=== PATIENT | male | born 1950 | race Caucasian/White ===

== ENCOUNTER 2019-05-01 07:38 | Day surgery (SDC) | payer MEDICARE ==
[2019-04-24 14:02] VITALS: BMI 27.8
[2019-05-01] MEDS ORDERED: Bupivacaine PF 0.5% 30 ML VIAL ONE (08:42)
[2019-05-01] MEDS ORDERED: Lidocaine 1% w/Epinephrine 1:100K 20 ML VIAL ONE (08:42)
[2019-05-01] MEDS ORDERED: Fentanyl 100 MCG/2 ML VIAL ONE (08:45)
[2019-05-01] MEDS ORDERED: Lidocaine 1% PF 5 ML VIAL ONE (11:13)
[2019-05-01] MEDS ORDERED: PROPOFOL 200 MG/20 ML VIAL ONE (11:13)
[2019-05-01] MEDS ORDERED: ePHEDrine/0.9% NaCl/PF SYRINGE 50 mg/10 ml ONE (11:13)
[2019-05-01] MEDS ORDERED: Ondansetron PF 4 MG/2 ML Vial ONE (11:13)
--- NOTE | 2019-05-02 14:01 | OP ---
DATE OF PROCEDURE: 05/01/2019 PREOPERATIVE DIAGNOSES: 1. Skin malignancy, left shoulder. 2. Lesions to scalp. POSTOPERATIVE DIAGNOSES: 1. Skin malignancy, left shoulder. 2. Lesions to scalp. PROCEDURES PERFORMED: 1. Wide local excision of skin cancer to left shoulder and thorax, 3.5 cm in diameter. 2. Complex layered closure of wound to left shoulder, 10.5 cm in length. 3. Shave biopsy of lesions to scalp. ANESTHESIA: General. ESTIMATED BLOOD LOSS: Minimal. COMPLICATIONS: None. SPECIMEN: Left shoulder lesion was marked with 2 short superior 1 long lateral and sent to Path, which revealed it to be a likely squamous malignancy with negative margins on frozen. Pathology of scalp lesions pending at this time. DESCRIPTION OF PROCEDURE: The patient was taken to the operating room and laid supine on the operating room table. After general anesthetic was obtained, the scalp and left chest was prepped and draped in a sterile fashion. An elliptical incision was used to remove the left shoulder exophytic ulcerated lesion. This was 3.5 cm in diameter and 10.5 cm in length. Dissection was taken down to the fascia. The wound was removed, marked, and sent to Path, which revealed frozen to be negative of the margins. Extensive undermining was performed circumferentially. The wound was closed in multiple layers using Vicryl, Monocryl, and Dermabond. Next, the scalp areas were shaved off using sharp dissection and sent to Path for biopsy. The wound bed was cauterized. There was no ongoing bleeding. The patient was sent to Recovery in stable condition. All instrument counts, needle counts, and lap counts were correct. Job ID: [id number]
== END 2019-05-01 12:33 | disposition home or self-care (01) ==
LOC: SDC 07:38
PROVIDERS: ATTEND Surgery
PROC: 0HB0XZX Excision of Scalp Skin, External Approach, Diagnostic (ICD-10-PCS; principal; 2019-05-01)
PROC: 0HBCXZZ Excision of Left Upper Arm Skin, External Approach (ICD-10-PCS; 2019-05-01)
DX: C44.629 Squamous cell carcinoma of skin of left upper limb, including shoulder (principal); L98.8 Other specified disorders of the skin and subcutaneous tissue; E78.5 Hyperlipidemia, unspecified; N40.0 Benign prostatic hyperplasia without lower urinary tract symptoms; E78.00 Pure hypercholesterolemia, unspecified; Z86.73 Personal history of transient ischemic attack (TIA), and cerebral infarction without residual deficits; Z87.891 Personal history of nicotine dependence; Z79.82 Long term (current) use of aspirin; Z79.899 Other long term (current) drug therapy
CPT/HCPCS: 88305; 88331; 88332; 88341; 88342; J0131; J0690; J2001; J2405; J2704; J3010; S0020

== ENCOUNTER 2021-07-23 12:15 | Inpatient (IN) | payer MEDICARE ==
[2021-08-04 10:04] VITALS: BMI 26.4
[2021-08-06] MEDS ORDERED: Tranexamic Acid 1,000 MG/10 ML VIAL ONE (06:21)
[2021-08-06] MEDS ORDERED: Sodium Chloride 0.9% 100 ML ONE (06:21)
[2021-08-06] MEDS ORDERED: Vancomycin 1.5 GRAM/300 ML BAG 1.5 GM in Premix Bag 1 BAG IVPB SCH (06:30)
[2021-08-06] MEDS ORDERED: Propofol 500 MG/50 ML VIAL ONE ×2 (06:47→08:47)
[2021-08-06] MEDS ORDERED: Fentanyl 100 MCG/2 ML VIAL ONE ×3 (06:47→12:08)
[2021-08-06] MEDS ORDERED: Midazolam HCl 2 mg/2 ml Vial ONE (06:47)
[2021-08-06] MEDS ORDERED: Acetaminophen 325 MG TAB PO PRN (06:51)
[2021-08-06] MEDS ORDERED: Ondansetron PF 4 MG/2 ML Vial IVP PRN (06:51)
[2021-08-06] MEDS ORDERED: Zolpidem Tartrate 5 MG TAB PO PRN (06:51)
[2021-08-06] MEDS ORDERED: diphenhydrAMINE 25 MG CAP PO PRN (06:51)
[2021-08-06] MEDS ORDERED: Fentanyl 100 MCG/2 ML VIAL SLOW IVP PRN ×2 (06:51)
[2021-08-06] MEDS ORDERED: Promethazine HCl 25 MG/ML VIAL IM PRN ×2 (06:51→10:15)
[2021-08-06] MEDS ORDERED: Bupivacaine PF 0.5% 30 ML VIAL ONE (06:57)
[2021-08-06] MEDS ORDERED: ceFAZolin 2 GM/DEX 5% 100 ML BAG ONE (07:15)
[2021-08-06] MEDS ORDERED: Phenylephrine 10 MG/ML VIAL ONE (07:43)
[2021-08-06] MEDS ORDERED: Glycopyrrolate 0.2 MG/ML 5 ML SYRINGE ONE (07:57)
[2021-08-06] MEDS ORDERED: Bupivacaine HCl 0.5%/Epinephrine 1:200,000/PF 30 ml Vial ONE (07:57)
[2021-08-06] MEDS ORDERED: Non-Formulary Item 1 EACH (Cyanocobalamin (Vitamin B-12) [Vitamin B-12] 1,000 MCG Capsule PO SCH (09:00)
[2021-08-06] MEDS ORDERED: Aspirin 81 mg Enteric Coated Tablet PO SCH ×2 (09:00)
[2021-08-06] MEDS ORDERED: Non-Formulary Item 1 EACH (Atorvastatin Calcium [Atorvastatin Calcium] 80 MG Tablet) PO SCH (09:00)
[2021-08-06] MEDS ORDERED: Non-Formulary Item 1 EACH (Multivit-Mins/Iron/Folic/Lycop [Centrum Men's Tablet] 1 EACH T PO SCH (09:00)
[2021-08-06] MEDS ORDERED: Ondansetron HCl/PF 4 MG/2 ML Vial IVP PRN (10:15)
[2021-08-06] MEDS ORDERED: Promethazine HCl 25 MG/ML VIAL IVPB PRN (10:15)
[2021-08-06] MEDS ORDERED: ceFAZolin 2 GM/Dextrose 50 ML 2 GM in Premix Bag 1 BAG IVPB SCH (14:00)
[2021-08-06] MEDS: Sodium Chloride 0.9% 1,000 ML IV SCH ×3 (19:08→23:46)
[2021-08-06] MEDS: Multivitamin W/ Minerals 1 TAB PO SCH (19:13)
[2021-08-06] MEDS: Ferrous Gluconate 324 MG TAB PO SCH ×2 (19:13→20:44)
[2021-08-06] MEDS: Cyanocobalamin (Vitamin B-12) 1,000 MCG TAB PO SCH (19:13)
[2021-08-06] MEDS: Aspirin 81 mg Enteric Coated Tablet PO SCH (19:13)
[2021-08-06] MEDS: Senokot S 8.6-50 MG TAB PO SCH ×2 (19:14→20:45)
[2021-08-06] MEDS: Ketorolac Tromethamine 30 MG/ML VIAL IVP SCH ×2 (19:20→20:43)
[2021-08-06] MEDS: ceFAZolin Sodium/D5W 2 GM in Premix Bag 1 BAG IVPB SCH ×2 (19:22→23:46)
[2021-08-06] MEDS: Atorvastatin Calcium 40 MG TAB PO SCH (20:45)
[2021-08-06] MEDS: HYDROcodone/Acetaminophen 10/325 mg Tablet PO PRN (22:25)
[2021-08-07] MEDS: Ketorolac Tromethamine 30 MG/ML VIAL IVP SCH ×3 (05:32→22:21)
[2021-08-07 06:30] LABS: Hemoglobin 12.2 g/dL (14.0-18.0); Mean Corpuscular HGB CONC 34.1 g/dL (32.0-36.0); Mean Corpuscular Hemoglobin 34.7 pg (27.0-31.0); Platelet Count 185 thou/uL (130-400); RBC Distribution Width 12.3 % (11.5-14.5); Red Blood Cell (RBC) Count 3.52 mill/uL (4.70-6.10); White Blood Cell (WBC) Count 4.8 thou/uL (4.8-10.8)
[2021-08-07] MEDS: Ferrous Gluconate 324 MG TAB PO SCH ×2 (09:20→20:20)
[2021-08-07] MEDS: Senokot S 8.6-50 MG TAB PO SCH ×2 (09:20→20:20)
[2021-08-07] MEDS: Cyanocobalamin (Vitamin B-12) 1,000 MCG TAB PO SCH (09:21)
[2021-08-07] MEDS: Multivitamin W/ Minerals 1 TAB PO SCH (09:21)
[2021-08-07] MEDS: Aspirin 81 mg Enteric Coated Tablet PO SCH (09:21)
[2021-08-07] MEDS: HYDROcodone/Acetaminophen 10/325 mg Tablet PO PRN (10:57)
[2021-08-07] MEDS: Sodium Chloride 0.9% 1,000 ML IV SCH ×2 (15:54→22:46)
[2021-08-07] MEDS: Atorvastatin Calcium 40 MG TAB PO SCH (20:20)
[2021-08-08] MEDS: Ketorolac Tromethamine 30 MG/ML VIAL IVP SCH ×2 (05:53→14:30)
[2021-08-08 06:13] LABS: Hemoglobin 11.5 g/dL (14.0-18.0); Mean Corpuscular HGB CONC 32.9 g/dL (32.0-36.0); Mean Corpuscular Hemoglobin 33.4 pg (27.0-31.0); Platelet Count 189 thou/uL (130-400); RBC Distribution Width 12.3 % (11.5-14.5); Red Blood Cell (RBC) Count 3.45 mill/uL (4.70-6.10); White Blood Cell (WBC) Count 6.5 thou/uL (4.8-10.8)
[2021-08-08] MEDS: Cyanocobalamin (Vitamin B-12) 1,000 MCG TAB PO SCH (08:45)
[2021-08-08] MEDS: Multivitamin W/ Minerals 1 TAB PO SCH (08:45)
[2021-08-08] MEDS: Senokot S 8.6-50 MG TAB PO SCH ×2 (08:45→19:32)
[2021-08-08] MEDS: Aspirin 81 mg Enteric Coated Tablet PO SCH (08:45)
[2021-08-08] MEDS: Ferrous Gluconate 324 MG TAB PO SCH ×2 (08:45→19:33)
[2021-08-08] MEDS: Sodium Chloride 0.9% 1,000 ML IV SCH ×2 (09:01→17:31)
[2021-08-08] MEDS: Atorvastatin Calcium 40 MG TAB PO SCH (19:33)
[2021-08-09] MEDS: HYDROcodone/Acetaminophen 10/325 mg Tablet PO PRN ×2 (03:51→20:55)
[2021-08-09] MEDS: Sodium Chloride 0.9% 1,000 ML IV SCH ×2 (04:17→16:31)
[2021-08-09 06:28] LABS: Hemoglobin 10.4 g/dL (14.0-18.0); Mean Corpuscular HGB CONC 33.1 g/dL (32.0-36.0); Mean Corpuscular Hemoglobin 33.7 pg (27.0-31.0); Mean Platelet Volume 7.1 fL (7.4-10.4); Platelet Count 192 thou/uL (130-400); RBC Distribution Width 12.2 % (11.5-14.5); Red Blood Cell (RBC) Count 3.09 mill/uL (4.70-6.10); White Blood Cell (WBC) Count 5.9 thou/uL (4.8-10.8)
[2021-08-09] MEDS: Senokot S 8.6-50 MG TAB PO SCH ×2 (09:10→20:53)
[2021-08-09] MEDS: Aspirin 81 mg Enteric Coated Tablet PO SCH (09:15)
[2021-08-09] MEDS: Ferrous Gluconate 324 MG TAB PO SCH ×2 (09:16→20:54)
[2021-08-09] MEDS: Multivitamin W/ Minerals 1 TAB PO SCH (09:16)
[2021-08-09] MEDS: Cyanocobalamin (Vitamin B-12) 1,000 MCG TAB PO SCH (09:17)
[2021-08-09] MEDS: Atorvastatin Calcium 40 MG TAB PO SCH (20:54)
[2021-08-10] MEDS: Sodium Chloride 0.9% 1,000 ML IV SCH ×3 (01:00→21:00)
[2021-08-10 05:44] LABS: Hemoglobin 10.5 g/dL (14.0-18.0); Mean Corpuscular HGB CONC 33.9 g/dL (32.0-36.0); Mean Corpuscular Hemoglobin 34.3 pg (27.0-31.0); Mean Platelet Volume 6.8 fL (7.4-10.4); Platelet Count 224 thou/uL (130-400); Red Blood Cell (RBC) Count 3.05 mill/uL (4.70-6.10); White Blood Cell (WBC) Count 5.1 thou/uL (4.8-10.8)
[2021-08-10] MEDS: HYDROcodone/Acetaminophen 10/325 mg Tablet PO PRN ×3 (07:57→20:36)
[2021-08-10] MEDS: Aspirin 81 mg Enteric Coated Tablet PO SCH (07:58)
[2021-08-10] MEDS: Cyanocobalamin (Vitamin B-12) 1,000 MCG TAB PO SCH (07:59)
[2021-08-10] MEDS: Ferrous Gluconate 324 MG TAB PO SCH ×2 (07:59→20:36)
[2021-08-10] MEDS: Multivitamin W/ Minerals 1 TAB PO SCH (08:00)
[2021-08-10] MEDS: Senokot S 8.6-50 MG TAB PO SCH ×2 (08:00→20:36)
[2021-08-10] MEDS: Atorvastatin Calcium 40 MG TAB PO SCH (20:36)
[2021-08-11] MEDS: Sodium Chloride 0.9% 1,000 ML IV SCH ×2 (07:00→18:37)
[2021-08-11] MEDS: Multivitamin W/ Minerals 1 TAB PO SCH (08:26)
[2021-08-11] MEDS: Senokot S 8.6-50 MG TAB PO SCH ×2 (08:26→21:16)
[2021-08-11] MEDS: Ferrous Gluconate 324 MG TAB PO SCH ×2 (08:26→21:16)
[2021-08-11] MEDS: Aspirin 81 mg Enteric Coated Tablet PO SCH (08:26)
[2021-08-11] MEDS: Cyanocobalamin (Vitamin B-12) 1,000 MCG TAB PO SCH (08:26)
[2021-08-11] MEDS: HYDROcodone/Acetaminophen 10/325 mg Tablet PO PRN ×2 (08:28→21:18)
[2021-08-11] MEDS: Atorvastatin Calcium 40 MG TAB PO SCH (21:16)
[2021-08-12] MEDS: Sodium Chloride 0.9% 1,000 ML IV SCH ×2 (03:00→15:02)
[2021-08-12] MEDS: Senokot S 8.6-50 MG TAB PO SCH ×2 (10:00→21:26)
[2021-08-12] MEDS: Aspirin 81 mg Enteric Coated Tablet PO SCH (10:00)
[2021-08-12] MEDS: Cyanocobalamin (Vitamin B-12) 1,000 MCG TAB PO SCH (10:00)
[2021-08-12] MEDS: HYDROcodone/Acetaminophen 10/325 mg Tablet PO PRN ×2 (10:01→21:23)
[2021-08-12] MEDS: Multivitamin W/ Minerals 1 TAB PO SCH (10:01)
[2021-08-12] MEDS: Ferrous Gluconate 324 MG TAB PO SCH ×2 (10:01→21:23)
[2021-08-12] MEDS: Atorvastatin Calcium 40 MG TAB PO SCH (21:23)
[2021-08-13] MEDS: Sodium Chloride 0.9% 1,000 ML IV SCH ×2 (00:33→11:06)
[2021-08-13] MEDS: HYDROcodone/Acetaminophen 10/325 mg Tablet PO PRN ×2 (06:23→13:34)
[2021-08-13] MEDS: Multivitamin W/ Minerals 1 TAB PO SCH (08:07)
[2021-08-13] MEDS: Ferrous Gluconate 324 MG TAB PO SCH (08:07)
[2021-08-13] MEDS: Senokot S 8.6-50 MG TAB PO SCH (08:07)
[2021-08-13] MEDS: Aspirin 81 mg Enteric Coated Tablet PO SCH (08:07)
[2021-08-13] MEDS: Cyanocobalamin (Vitamin B-12) 1,000 MCG TAB PO SCH (08:11)
[2021-08-13 11:48] VITALS: BP 153/71; TEMP 98.3
== END 2021-08-13 14:36 | disposition home or self-care (01) | DRG 467 ==
LOC: EDSTATUS 07-28 12:15 → SURG A 08-06 05:39 → SURG B 08-06 15:00
PROVIDERS: ADMIT Orthopaedic Surgery; ATTEND Orthopaedic Surgery
PROC: 0SRB03A Replacement of Left Hip Joint with Ceramic Synthetic Substitute, Uncemented, Open Approach (ICD-10-PCS; principal; 2021-08-06)
PROC: 0SPB0JZ Removal of Synthetic Substitute from Left Hip Joint, Open Approach (ICD-10-PCS; 2021-08-06)
DX: T84.011A Broken internal left hip prosthesis, initial encounter (principal); D62 Acute posthemorrhagic anemia; Y83.8 Other surgical procedures as the cause of abnormal reaction of the patient, or of later complication, without mention of misadventure at the time of the procedure; E78.5 Hyperlipidemia, unspecified; E78.00 Pure hypercholesterolemia, unspecified; Z20.822 Contact with and (suspected) exposure to COVID-19; Z96.649 Presence of unspecified artificial hip joint; Z86.73 Personal history of transient ischemic attack (TIA), and cerebral infarction without residual deficits; Z85.828 Personal history of other malignant neoplasm of skin; Z90.49 Acquired absence of other specified parts of digestive tract; Z01.812 Encounter for preprocedural laboratory examination
CPT/HCPCS: 36415; 80048; 85025; 85027; 85610; 87081; 88305; 93005; 93010; C1713; C1776; J1885; J2250; J2370; J2704; J3010; J3490; J7050; S0020; U0003; U0005

== ENCOUNTER 2022-12-06 21:05 | Emergency (ER) | payer OTHER | END 2022-12-06 22:46 | disposition home or self-care (01) | LOC: ERS 21:05 | DX: R53.1 Weakness (principal); E78.00 Pure hypercholesterolemia, unspecified; Z79.899 Other long term (current) drug therapy | CPT/HCPCS: 93005 ==

== ENCOUNTER 2022-12-07 05:29 | Inpatient (IN) | payer OTHER ==
[2022-12-07] MEDS ORDERED: Lidocaine 1% (PF) 30 ML VIAL ONE (06:31)
[2022-12-07] MEDS ORDERED: Midazolam HCl 2 mg/2 ml Vial ONE (07:12)
[2022-12-07] MEDS ORDERED: fentaNYL 50 mcg/mL 1 mL Vial ONE (07:13)
[2022-12-07 07:35] LABS: Cardiac Risk 3.9 (Less than 4.5)
[2022-12-07] MEDS ORDERED: Heparin 10,000 UNITS/ 10 ML VIAL ONE (07:40)
[2022-12-07] MEDS ORDERED: Protamine Sulfate 50 MG/5 ML VIAL ONE (07:54)
[2022-12-07] MEDS ORDERED: Diazepam 5 MG TAB PO PRN (09:05)
[2022-12-07] MEDS ORDERED: Iopamidol 370 76% 100 ML VIAL ONE (09:09)
[2022-12-07] MEDS ORDERED: Nitroglycerin 0.4 MG TAB (25 Tab Bottle) SL PRN (09:45)
[2022-12-07] MEDS ORDERED: Acetaminophen/Codeine 30-300mg Tablet PO PRN ×2 (09:45)
[2022-12-07] MEDS ORDERED: Sodium Chloride 0.9% 1,000 ML IV SCH (09:45)
[2022-12-07] MEDS: Carvedilol 3.125 MG TAB PO SCH (18:10)
[2022-12-07] MEDS ORDERED: Atorvastatin Calcium 40 MG TAB PO SCH (21:00)
[2022-12-08] MEDS ORDERED: CEFAZOLIN 2 GM in Sodium Chloride 0.9% 100 ML IVPB SCH (06:00)
[2022-12-08] MEDS: Carvedilol 3.125 MG TAB PO SCH (06:20)
[2022-12-08] MEDS ORDERED: Heparin 10,000 UNITS/1 ML VIAL 30,000 UNITS in Sodium Chloride 0.9% 1,000 ML FS SCH (07:30)
[2022-12-08] MEDS ORDERED: Lidocaine 1% MPF 2 ML VIAL ONE (09:51)
[2022-12-08] MEDS ORDERED: Bupivacaine HCl 0.5%/Epinephrine 1:200,000/PF 30 ml Vial ONE (10:50)
[2022-12-08] MEDS ORDERED: Midazolam HCl 2 mg/2 ml Vial ONE (10:50)
[2022-12-08] MEDS ORDERED: Dexamethasone 4 mg/ml Vial ONE (10:50)
[2022-12-08] MEDS ORDERED: Heparin 5,000 UNITS/ML VIAL ONE (10:54)
[2022-12-08] MEDS ORDERED: Rocuronium Bromide 10 MG/ML (10ML VIAL) ONE (10:54)
[2022-12-08] MEDS ORDERED: PHENYLEPHRINE-NS 100 MCG/ML 10 ML SYRINGE ONE (10:54)
[2022-12-08] MEDS ORDERED: Calcium Chloride 1 GM/10 ML Abboject SYRINGE ONE (10:54)
[2022-12-08] MEDS ORDERED: PROPOFOL 200 MG/20 ML VIAL ONE (10:54)
[2022-12-08] MEDS ORDERED: NEOSTIGMINE 3 MG/3 ML SYR 3 MG/3 ML SYRINGE ONE (10:54)
[2022-12-08] MEDS ORDERED: Heparin 30,000 units/30 ml VIAL ONE (10:54)
[2022-12-08] MEDS ORDERED: Papaverine 60 MG/2 ML VIAL ONE (10:54)
[2022-12-08] MEDS ORDERED: Sodium Bicarb 50 MEQ/50 ML VIAL ONE (10:54)
[2022-12-08] MEDS ORDERED: Aminocaproic Acid 5 GM/20 ML VIAL ONE (10:54)
[2022-12-08] MEDS ORDERED: Vancomycin 1 GM VIAL ONE (10:54)
[2022-12-08] MEDS ORDERED: Mannitol 12.5 GM/50 ML ONE (10:54)
[2022-12-08] MEDS ORDERED: Lidocaine 2% PF 100 mg/5 ml Syringe ONE (10:54)
[2022-12-08] MEDS ORDERED: Ondansetron PF 4 MG/2 ML Vial ONE (10:54)
[2022-12-08] MEDS ORDERED: Protamine Sulfate 250 MG/25 ML VIAL ONE (10:54)
[2022-12-08] MEDS ORDERED: Glycopyrrolate 0.2 MG/ML 5 ML SYRINGE ONE (10:54)
[2022-12-08] MEDS ORDERED: Magnesium 5 GM/10 ML VIAL ONE (10:54)
[2022-12-08] MEDS ORDERED: Potassium Chloride 60 MEQ/30 ML VIAL ONE (10:54)
[2022-12-08] MEDS ORDERED: Thrombin 5000 UNITS/5 ML VIAL ONE (10:54)
[2022-12-08] MEDS ORDERED: Fentanyl 250 MCG/5 ML VIAL ONE (11:08)
[2022-12-08] MEDS ORDERED: Milrinone 10 MG/10 ML VIAL ONE (11:08)
[2022-12-08] MEDS ORDERED: Phenylephrine 10 MG/ML VIAL ONE (11:09)
[2022-12-08] MEDS ORDERED: Norepinephrine 4 MG/4 ML VIAL ONE (11:12)
[2022-12-08] MEDS ORDERED: Sodium Chloride 0.9% 100 ML ONE (11:17)
[2022-12-08] MEDS ORDERED: CEFAZOLIN 2 GM VIAL ONE (11:17)
[2022-12-08] MEDS ORDERED: Albumin 5% 500 ML ONE (13:02)
[2022-12-08] MEDS ORDERED: Albumin 25% 100 ML ONE (14:58)
[2022-12-08] MEDS ORDERED: Mag-Al 1200 mg/1200 mg/30 ML UDCUP PO PRN (15:01)
[2022-12-08] MEDS ORDERED: Bisacodyl 5 MG TAB PO PRN (15:01)
[2022-12-08] MEDS ORDERED: Morphine 2 MG/ML VIAL SLOW IVP PRN (15:01)
[2022-12-08] MEDS ORDERED: Hetastarch 6% 500 ML 500 ML IVPB PRN (15:01)
[2022-12-08] MEDS ORDERED: Potassium Chloride 20 MEQ/100 ML PREMIX BAG IVPB PRN (15:01)
[2022-12-08] MEDS ORDERED: Promethazine HCl 25 MG/ML VIAL IM PRN (15:01)
[2022-12-08] MEDS ORDERED: Acetaminophen 325 MG TAB PO PRN (15:01)
[2022-12-08] MEDS ORDERED: Ipratropium/Albuterol 3 ML NEB NEB PRN (15:01)
[2022-12-08] MEDS ORDERED: Bisacodyl 10 MG SUPP PR PRN (15:01)
[2022-12-08] MEDS ORDERED: NOREPINEPHRINE 8 MG/250 ML-D5W 250 ML IVPB PRN (15:01)
[2022-12-08] MEDS ORDERED: fentaNYL 50 mcg/mL 1 mL Vial SLOW IVP PRN (15:01)
[2022-12-08] MEDS ORDERED: Ondansetron PF 4 MG/2 ML Vial IVP PRN (15:01)
[2022-12-08] MEDS ORDERED: Guaifenesin DM 100-10/5 ML UDCUP PO PRN (15:01)
[2022-12-08] MEDS ORDERED: Magnesium 2 GM/50 ML(in water) 2 GM in Premix Bag 1 BAG IVPB SCH (15:01)
[2022-12-08] MEDS ORDERED: Nitroglycerin 50 MG/250 ML BOT 250 ML IVPB PRN (15:01)
[2022-12-08] MEDS ORDERED: HYDROcodone/Acetaminophen 5/325 mg Tablet PO PRN ×2 (15:01)
[2022-12-08] MEDS ORDERED: hydrALAZINE 20 MG/ML VIAL SLOW IVP PRN (15:01)
[2022-12-08] MEDS ORDERED: Glucagon 1 MG/ML KIT SC PRN (15:15)
[2022-12-08] MEDS ORDERED: Dextrose 5% in Water 1,000 ML IV PRN (15:15)
[2022-12-08] MEDS ORDERED: Dextrose 50% Abboject 50 ML SYRINGE SLOW IVP PRN (15:15)
[2022-12-08 15:21] LABS: #Eosinphils 0.3 thou/uL (0.0-0.7); #Monocytes 0.6 thou/uL (0.11-0.59); #Neutrophils 10.5 thou/uL (1.40-6.50); %Basophils 0.2 % (0.0-1.0); %Eosinophils 2.2 % (0.0-10.0); %Lymphocytes 7.6 % (21.0-51.0); %Monocytes 4.5 % (0.0-10.0); Hematocrit 33.7 % (42.0-52.0); Mean Corpuscular HGB CONC 32.6 g/dL (32.0-36.0); Mean Corpuscular Hemoglobin 32.6 pg (27.0-31.0); Mean Platelet Volume 9.9 fL (7.4-10.4); Platelet Count 170 10x3/uL (130-400); RBC Distribution Width 13.5 % (11.5-14.5); Red Blood Cell (RBC) Count 3.37 mill/uL (4.70-6.10); White Blood Cell (WBC) Count 12.3 10x3/uL (4.8-10.8)
[2022-12-08] MEDS: D5 1/2 NS w/20 mEq KCL 1,000 ML IV SCH (15:32)
[2022-12-08 15:37] LABS: PTT 33.3 sec (22.9-36.1)
[2022-12-08 15:38] LABS: INR-International Normal Ratio 1.3
[2022-12-08 15:45] LABS: Anion Gap 14 mmol/L (10-20); BUN (Urea Nitrogen) 11 mg/dL (8.4-25.7); Calc. Creatinine Clearance 139 mL/min (70-130); Calcium 7.9 mg/dL (7.8-10.44); Carbon Dioxide 19 mmol/L (23-31); Chloride 108 mmol/L (98-107); Estimated GFR 106; Glucose 114 mg/dL (83-110); Potassium 4.1 mmol/L (3.5-5.1); Sodium 137 mmol/L (136-145)
[2022-12-08] MEDS: fentaNYL 50 mcg/mL 1 mL Vial SLOW IVP PRN ×2 (15:50→20:04)
[2022-12-08] MEDS: Ketorolac Tromethamine 30 MG/ML VIAL IVP SCH ×2 (17:30→23:21)
[2022-12-08] MEDS: CEFAZOLIN 2 GM in Sodium Chloride 0.9% 100 ML IVPB SCH (20:04)
[2022-12-08] MEDS: Famotidine/PF 20 mg/2ml Vial SLOW IVP SCH (20:04)
[2022-12-08 21:09] LABS: Hemoglobin 10.8 g/dL (14.0-18.0)
[2022-12-08 22:04] LABS: Potassium 4.3 mmol/L (3.5-5.1)
[2022-12-08] MEDS: Insulin Regular 300 UNITS/3 ML VIAL SC PRN (22:36)
[2022-12-09] MEDS: CEFAZOLIN 2 GM in Sodium Chloride 0.9% 100 ML IVPB SCH ×2 (03:37→12:30)
[2022-12-09 04:24] LABS: #Monocytes 0.4 thou/uL (0.11-0.59); #Neutrophils 6.3 thou/uL (1.40-6.50); %Basophils 0.4 % (0.0-1.0); %Eosinophils 0.5 % (0.0-10.0); %Monocytes 5.7 % (0.0-10.0); %Neutrophils 86.1 % (42.0-75.0); Hematocrit 30.4 % (42.0-52.0); Mean Corpuscular HGB CONC 32.9 g/dL (32.0-36.0); Mean Corpuscular Hemoglobin 32.5 pg (27.0-31.0); Mean Corpuscular Volume 98.7 fl (78.0-98.0); Mean Platelet Volume 10.3 fL (7.4-10.4); Platelet Count 149 10x3/uL (130-400); RBC Distribution Width 13.3 % (11.5-14.5); Red Blood Cell (RBC) Count 3.08 mill/uL (4.70-6.10); White Blood Cell (WBC) Count 7.3 10x3/uL (4.8-10.8)
[2022-12-09] MEDS: Ketorolac Tromethamine 30 MG/ML VIAL IVP SCH ×4 (05:02→23:25)
[2022-12-09 05:08] LABS: Anion Gap 13 mmol/L (10-20); BUN (Urea Nitrogen) 11 mg/dL (8.4-25.7); Calc. Creatinine Clearance 126 mL/min (70-130); Carbon Dioxide 22 mmol/L (23-31); Chloride 109 mmol/L (98-107); Estimated GFR 103; Glucose 149 mg/dL (83-110); Potassium 4.3 mmol/L (3.5-5.1); Sodium 140 mmol/L (136-145)
[2022-12-09] MEDS: Insulin Regular 300 UNITS/3 ML VIAL SC PRN (05:21)
[2022-12-09] MEDS: Famotidine/PF 20 mg/2ml Vial SLOW IVP SCH ×2 (09:10→20:54)
[2022-12-09] MEDS: Magnesium 2 GM/50 ML(in water) 2 GM in Premix Bag 1 BAG IVPB SCH (09:10)
[2022-12-09] MEDS: Aspirin 325 MG TAB PO SCH (09:11)
[2022-12-09] MEDS: D5 1/2 NS w/20 mEq KCL 1,000 ML IV SCH (16:09)
[2022-12-10 04:14] LABS: #Eosinphils 0.5 thou/uL (0.0-0.7); #Monocytes 0.4 thou/uL (0.11-0.59); #Neutrophils 4.7 thou/uL (1.40-6.50); %Basophils 0.2 % (0.0-1.0); %Eosinophils 7.4 % (0.0-10.0); %Lymphocytes 9.2 % (21.0-51.0); %Monocytes 5.8 % (0.0-10.0); %Neutrophils 77.2 % (42.0-75.0); Hematocrit 31.1 % (42.0-52.0); Hemoglobin 10.3 g/dL (14.0-18.0); Mean Corpuscular HGB CONC 33.1 g/dL (32.0-36.0); Mean Corpuscular Hemoglobin 32.3 pg (27.0-31.0); Mean Corpuscular Volume 97.5 fl (78.0-98.0); Mean Platelet Volume 10.5 fL (7.4-10.4); Platelet Count 156 10x3/uL (130-400); RBC Distribution Width 13.3 % (11.5-14.5); Red Blood Cell (RBC) Count 3.19 mill/uL (4.70-6.10); White Blood Cell (WBC) Count 6.1 10x3/uL (4.8-10.8)
[2022-12-10 04:45] LABS: ALT (SGPT) 171 U/L (8-55); AST (SGOT) 142 U/L (5-34); Albumin 3.3 g/dL (3.4-4.8); Alkaline Phosphatase 61 U/L (40-110); Anion Gap 12 mmol/L (10-20); BUN (Urea Nitrogen) 15 mg/dL (8.4-25.7); Bilirubin, Total 0.6 mg/dL (0.2-1.2); Calc. Creatinine Clearance 134 mL/min (70-130); Calcium 8.1 mg/dL (7.8-10.44); Carbon Dioxide 23 mmol/L (23-31); Chloride 106 mmol/L (98-107); Estimated GFR 105; Glucose 105 mg/dL (83-110); Potassium 3.8 mmol/L (3.5-5.1); Protein, Total 5.3 g/dL (5.8-8.1); Sodium 137 mmol/L (136-145)
[2022-12-10] MEDS: Ketorolac Tromethamine 30 MG/ML VIAL IVP SCH ×3 (05:38→17:45)
[2022-12-10 05:49] VITALS: BMI 25.2
[2022-12-10] MEDS ORDERED: Bisacodyl 10 MG SUPP PR PRN (07:43)
[2022-12-10] MEDS ORDERED: Nitroglycerin 0.4 MG TAB (25 Tab Bottle) SL PRN (07:43)
[2022-12-10] MEDS ORDERED: Zolpidem Tartrate 5 MG TAB PO PRN (07:43)
[2022-12-10] MEDS ORDERED: diphenhydrAMINE 25 MG CAP PO PRN (07:43)
[2022-12-10] MEDS ORDERED: Mineral Oil ENEMA PR PRN (07:43)
[2022-12-10] MEDS ORDERED: Mag-Al 1200 mg/1200 mg/30 ML UDCUP PO PRN (07:43)
[2022-12-10] MEDS ORDERED: Artificial Tear Sol 15 ML BOT EA EYE PRN (07:43)
[2022-12-10] MEDS ORDERED: Bisacodyl 5 MG TAB PO PRN (07:43)
[2022-12-10] MEDS ORDERED: Guaifenesin DM 100-10/5 ML UDCUP PO PRN (07:43)
[2022-12-10] MEDS ORDERED: Dextrose 50% Abboject 50 ML SYRINGE SLOW IVP PRN (08:15)
[2022-12-10] MEDS ORDERED: HUMULIN R 100 UNITS in Sodium Chloride 0.9% 100 ML IVPB SCH (08:15)
[2022-12-10] MEDS ORDERED: Insulin Regular 300 UNITS/3 ML VIAL SC PRN (08:15)
[2022-12-10] MEDS ORDERED: Glucagon 1 MG/ML KIT SC PRN (08:15)
[2022-12-10] MEDS ORDERED: Dextrose 5% in Water 1,000 ML IV PRN (08:15)
[2022-12-10] MEDS: Magnesium 2 GM/50 ML(in water) 2 GM in Premix Bag 1 BAG IVPB SCH (09:42)
[2022-12-10] MEDS: Carvedilol 3.125 MG TAB PO SCH ×2 (09:43→17:45)
[2022-12-10] MEDS: Aspirin 325 MG TAB PO SCH (09:43)
[2022-12-10] MEDS: Furosemide 40 MG TAB PO SCH (09:43)
[2022-12-10] MEDS: Potassium Chloride 10 MEQ TAB PO SCH (09:43)
[2022-12-11] MEDS: Ketorolac Tromethamine 30 MG/ML VIAL IVP SCH ×4 (00:31→18:05)
[2022-12-11] MEDS ORDERED: Insulin Glargine 30 UNITS/0.3 ML VIAL SC PRN (08:03)
[2022-12-11] MEDS: Aspirin 325 MG TAB PO SCH (11:00)
[2022-12-11] MEDS: Furosemide 40 MG TAB PO SCH (11:00)
[2022-12-11] MEDS: Potassium Chloride 10 MEQ TAB PO SCH (11:02)
[2022-12-11] MEDS: Carvedilol 3.125 MG TAB PO SCH ×2 (11:03→18:10)
[2022-12-11 12:18] LABS: ALT (SGPT) 199 U/L (8-55); AST (SGOT) 155 U/L (5-34); Albumin 3.4 g/dL (3.4-4.8); Alkaline Phosphatase 77 U/L (40-110); Bilirubin, Direct 0.3 mg/dL (0.1-0.3); Bilirubin, Total 0.5 mg/dL (0.2-1.2)
[2022-12-12] MEDS: Carvedilol 3.125 MG TAB PO SCH ×2 (10:31→17:07)
[2022-12-12] MEDS: Potassium Chloride 10 MEQ TAB PO SCH (10:31)
[2022-12-12] MEDS: Furosemide 40 MG TAB PO SCH (10:31)
[2022-12-12] MEDS: Aspirin 325 MG TAB PO SCH (10:32)
[2022-12-13] MEDS: Aspirin 325 MG TAB PO SCH (10:19)
[2022-12-13] MEDS: Potassium Chloride 10 MEQ TAB PO SCH (10:19)
[2022-12-13] MEDS: Furosemide 40 MG TAB PO SCH (10:19)
[2022-12-13] MEDS: Carvedilol 3.125 MG TAB PO SCH ×2 (10:19→16:35)
[2022-12-14] MEDS: Aspirin 325 MG TAB PO SCH (09:40)
[2022-12-14] MEDS: Ezetimibe 10 MG TAB PO SCH (09:40)
[2022-12-14] MEDS: Potassium Chloride 10 MEQ TAB PO SCH (09:40)
[2022-12-14] MEDS: Carvedilol 3.125 MG TAB PO SCH ×2 (09:40→20:30)
[2022-12-14] MEDS: Furosemide 40 MG TAB PO SCH (09:41)
[2022-12-14] MEDS ORDERED: Lidocaine 4% Patch TD PRN (11:46)
[2022-12-14] MEDS: Transdermal Patch Removal TOP SCH (21:56)
[2022-12-15] MEDS: Carvedilol 3.125 MG TAB PO SCH ×2 (11:19→20:56)
[2022-12-15] MEDS: Furosemide 20 MG TAB PO SCH (11:19)
[2022-12-15] MEDS: Aspirin 325 MG TAB PO SCH (11:19)
[2022-12-15] MEDS: Ezetimibe 10 MG TAB PO SCH (11:22)
[2022-12-15] MEDS: Potassium Chloride 10 MEQ TAB PO SCH (11:26)
[2022-12-15] MEDS: Transdermal Patch Removal TOP SCH (20:56)
[2022-12-16] MEDS: Aspirin 325 MG TAB PO SCH (08:45)
[2022-12-16] MEDS: Furosemide 20 MG TAB PO SCH ×2 (08:45→13:11)
[2022-12-16] MEDS: Potassium Chloride 10 MEQ TAB PO SCH (08:45)
[2022-12-16] MEDS: Carvedilol 3.125 MG TAB PO SCH ×2 (08:45→17:09)
[2022-12-16] MEDS: Ezetimibe 10 MG TAB PO SCH (08:45)
[2022-12-16] MEDS: Transdermal Patch Removal TOP SCH (21:15)
[2022-12-17 05:33] LABS: ALT (SGPT) 289 U/L (8-55); AST (SGOT) 228 U/L (5-34); Albumin 3.5 g/dL (3.4-4.8); Alkaline Phosphatase 97 U/L (40-110); Anion Gap 12 mmol/L (10-20); BUN (Urea Nitrogen) 15 mg/dL (8.4-25.7); Bilirubin, Total 0.7 mg/dL (0.2-1.2); Calc. Creatinine Clearance 123 mL/min (70-130); Calcium 8.9 mg/dL (7.8-10.44); Carbon Dioxide 28 mmol/L (23-31); Chloride 98 mmol/L (98-107); Estimated GFR 103; Globulin 3.2 g/dL (2.4-3.5); Glucose 88 mg/dL (83-110); Potassium 4.1 mmol/L (3.5-5.1); Protein, Total 6.7 g/dL (5.8-8.1); Sodium 134 mmol/L (136-145)
[2022-12-17] MEDS: Ezetimibe 10 MG TAB PO SCH (09:03)
[2022-12-17] MEDS: Aspirin 325 MG TAB PO SCH (09:03)
[2022-12-17] MEDS: Furosemide 20 MG TAB PO SCH ×2 (09:03→16:36)
[2022-12-17] MEDS: Carvedilol 3.125 MG TAB PO SCH ×2 (09:04→18:36)
[2022-12-17] MEDS: Potassium Chloride 10 MEQ TAB PO SCH (09:04)
[2022-12-17] MEDS: Transdermal Patch Removal TOP SCH (21:29)
[2022-12-18] MEDS: Furosemide 20 MG TAB PO SCH ×2 (08:54→13:25)
[2022-12-18] MEDS: Aspirin 325 MG TAB PO SCH (08:54)
[2022-12-18] MEDS: Carvedilol 3.125 MG TAB PO SCH ×2 (08:54→16:18)
[2022-12-18] MEDS: Potassium Chloride 10 MEQ TAB PO SCH (08:54)
[2022-12-18] MEDS: Ezetimibe 10 MG TAB PO SCH (08:54)
[2022-12-18] MEDS: Transdermal Patch Removal TOP SCH (20:20)
[2022-12-19] MEDS: Aspirin 325 MG TAB PO SCH (08:39)
[2022-12-19] MEDS: Furosemide 20 MG TAB PO SCH ×2 (08:39→15:31)
[2022-12-19] MEDS: Ezetimibe 10 MG TAB PO SCH (08:39)
[2022-12-19] MEDS: Carvedilol 3.125 MG TAB PO SCH ×2 (08:39→18:54)
[2022-12-19] MEDS: Potassium Chloride 10 MEQ TAB PO SCH (08:39)
[2022-12-19] MEDS: Transdermal Patch Removal TOP SCH (21:59)
[2022-12-20] MEDS: Potassium Chloride 10 MEQ TAB PO SCH (09:12)
[2022-12-20] MEDS: Aspirin 325 MG TAB PO SCH (09:12)
[2022-12-20] MEDS: Furosemide 20 MG TAB PO SCH (09:13)
[2022-12-20] MEDS: Carvedilol 3.125 MG TAB PO SCH (09:13)
[2022-12-20] MEDS: Ezetimibe 10 MG TAB PO SCH (09:13)
[2022-12-20 11:43] VITALS: BP 105/59; TEMP 97.5
== END 2022-12-20 13:36 | disposition home or self-care (01) | DRG 234 ==
LOC: SDC 05:29 → 2SW 08:26 → OBSVTOIN 11:18 → CCU 12-08 10:35 → 2NO 12-10 15:38
PROVIDERS: ADMIT Internal Medicine Cardiovascular Disease; ATTEND Internal Medicine Cardiovascular Disease
PROC: 4A023N7 Measurement of Cardiac Sampling and Pressure, Left Heart, Percutaneous Approach (ICD-10-PCS; 2022-12-07)
PROC: B2111ZZ Fluoroscopy of Multiple Coronary Arteries using Low Osmolar Contrast (ICD-10-PCS; 2022-12-07)
PROC: B2151ZZ Fluoroscopy of Left Heart using Low Osmolar Contrast (ICD-10-PCS; 2022-12-07)
PROC: 02100Z9 Bypass Coronary Artery, One Artery from Left Internal Mammary, Open Approach (ICD-10-PCS; principal; 2022-12-08)
PROC: 021009W Bypass Coronary Artery, One Artery from Aorta with Autologous Venous Tissue, Open Approach (ICD-10-PCS; 2022-12-08)
PROC: 06BQ0ZZ Excision of Left Saphenous Vein, Open Approach (ICD-10-PCS; 2022-12-08)
PROC: 02L70CK Occlusion of Left Atrial Appendage with Extraluminal Device, Open Approach (ICD-10-PCS; 2022-12-08)
PROC: 30233J1 Transfusion of Nonautologous Serum Albumin into Peripheral Vein, Percutaneous Approach (ICD-10-PCS; 2022-12-08)
DX: I25.10 Atherosclerotic heart disease of native coronary artery without angina pectoris (principal); I25.5 Ischemic cardiomyopathy; E78.5 Hyperlipidemia, unspecified; Z96.643 Presence of artificial hip joint, bilateral; E78.00 Pure hypercholesterolemia, unspecified; I50.9 Heart failure, unspecified; I11.0 Hypertensive heart disease with heart failure; Z90.49 Acquired absence of other specified parts of digestive tract; Z86.73 Personal history of transient ischemic attack (TIA), and cerebral infarction without residual deficits; Z90.89 Acquired absence of other organs; Z79.899 Other long term (current) drug therapy; Z98.890 Other specified postprocedural states; Z79.82 Long term (current) use of aspirin; Z87.891 Personal history of nicotine dependence
CPT/HCPCS: 36415; 36416; 36430; 71045; 80048; 80053; 80061; 80076; 82805; 85025; 85347; 85610; 85730; 86850; 86900; 86901; 93005; 93010; 93458; 93798; 93880; 97139; 99152; 99153; C1751; C1769; J1100; J1642; J1644; J1885; J2001; J2150; J2250; J2260; J2370; J2405; J2440; J2704; J2720; J3010; J3370; J3475; J3480; J3490; P9045; Q9967; S0017; S0028

== ENCOUNTER 2023-02-16 15:20 | Inpatient (IN) | payer MEDICARE, OTHER ==
[2023-02-16 17:01] LABS: #Eosinphils 0.3 thou/uL (0.0-0.7); #Monocytes 0.3 thou/uL (0.11-0.59); #Neutrophils 3.2 thou/uL (1.40-6.50); %Basophils 0.9 % (0.0-1.0); %Eosinophils 5.9 % (0.0-10.0); %Lymphocytes 17.3 % (21.0-51.0); %Monocytes 6.8 % (0.0-10.0); %Neutrophils 68.9 % (42.0-75.0); Hematocrit 35.7 % (42.0-52.0); Hemoglobin 12.1 g/dL (14.0-18.0); Mean Corpuscular HGB CONC 33.9 g/dL (32.0-36.0); Mean Corpuscular Hemoglobin 32.4 pg (27.0-31.0); Mean Corpuscular Volume 95.7 fl (78.0-98.0); Mean Platelet Volume 10.2 fL (7.4-10.4); Platelet Count 176 10x3/uL (130-400); RBC Distribution Width 14.3 % (11.5-14.5); Red Blood Cell (RBC) Count 3.73 mill/uL (4.70-6.10); White Blood Cell (WBC) Count 4.6 10x3/uL (4.8-10.8)
[2023-02-16 17:23] LABS: ALT (SGPT) 332 U/L (8-55); AST (SGOT) 327 U/L (5-34); Albumin 3.3 g/dL (3.4-4.8); Alkaline Phosphatase 96 U/L (40-110); Anion Gap 12 mmol/L (10-20); BUN (Urea Nitrogen) 12 mg/dL (8.4-25.7); Bilirubin, Total 0.5 mg/dL (0.2-1.2); Calc. Creatinine Clearance 0 mL/min (70-130); Calcium 8.8 mg/dL (7.8-10.44); Carbon Dioxide 27 mmol/L (23-31); Chloride 99 mmol/L (98-107); Estimated GFR 102; Glucose 88 mg/dL (83-110); Potassium 4.1 mmol/L (3.5-5.1); Protein, Total 6.3 g/dL (5.8-8.1); Sodium 134 mmol/L (136-145)
[2023-02-16 17:27] LABS: Troponin I 0.017 ng/mL (< 0.028)
[2023-02-16 17:57] LABS: Bacteria/HPF 4+ HPF (None Seen); Bilirubin Negative (Negative); Blood, Urine 2+ (Negative); CAUTI Indications for Culture Alt mental st,lethar; Clarity Turbid (Clear); Glucose, Urine (Dipstick) Greater than 1000 mg/dL (Negative); Ketone, Urine Negative (Negative); Leukocyte 250 Leu/uL (Negative); Nitrite Negative (Negative); Protein, Urine (Dipstick) 20 mg/dL (Neg-Trace); RBC/HPF 0-3 HPF (0-3); Specific Gravity, Urine 1.024 (1.002-1.036); Squamous Epithelial None Seen HPF (0-3); Urobilinogen Normal mg/dL (Less than 2); WBC/HPF 21-50 HPF (0-3); pH, Urine 5.5 (5.0-9.0)
[2023-02-16 18:15] LABS: Urine Culture Reflex Yes Yes
[2023-02-16] MEDS ORDERED: cefTRIAXone (ROCEPHIN) 2 GM VIAL ONE (18:56)
[2023-02-16] MEDS ORDERED: Ondansetron ODT 4 MG TAB PO PRN (22:04)
[2023-02-16] MEDS ORDERED: Senokot S 8.6-50 MG TAB PO PRN (22:04)
[2023-02-16] MEDS ORDERED: Acetaminophen 325 MG TAB PO PRN (22:04)
[2023-02-16 23:41] VITALS: BMI 24.3
[2023-02-17 06:08] LABS: #Eosinphils 0.3 thou/uL (0.0-0.7); #Monocytes 0.4 thou/uL (0.11-0.59); #Neutrophils 4.1 thou/uL (1.40-6.50); %Basophils 0.5 % (0.0-1.0); %Eosinophils 4.5 % (0.0-10.0); %Monocytes 6.3 % (0.0-10.0); %Neutrophils 74.5 % (42.0-75.0); Hematocrit 35.2 % (42.0-52.0); Hemoglobin 11.8 g/dL (14.0-18.0); Mean Corpuscular HGB CONC 33.5 g/dL (32.0-36.0); Mean Corpuscular Hemoglobin 31.9 pg (27.0-31.0); Mean Corpuscular Volume 95.1 fl (78.0-98.0); Mean Platelet Volume 9.6 fL (7.4-10.4); Platelet Count 170 10x3/uL (130-400); RBC Distribution Width 14.2 % (11.5-14.5); White Blood Cell (WBC) Count 5.6 10x3/uL (4.8-10.8)
[2023-02-17 06:38] LABS: ALT (SGPT) 304 U/L (8-55); AST (SGOT) 307 U/L (5-34); Albumin 2.9 g/dL (3.4-4.8); Alkaline Phosphatase 91 U/L (40-110); Anion Gap 11 mmol/L (10-20); BUN (Urea Nitrogen) 11 mg/dL (8.4-25.7); Bilirubin, Total 0.4 mg/dL (0.2-1.2); Calc. Creatinine Clearance 157 mL/min (70-130); Calcium 8.3 mg/dL (7.8-10.44); Carbon Dioxide 26 mmol/L (23-31); Chloride 102 mmol/L (98-107); Estimated GFR 110; Globulin 2.9 g/dL (2.4-3.5); Glucose 84 mg/dL (83-110); Potassium 3.9 mmol/L (3.5-5.1); Protein, Total 5.8 g/dL (5.8-8.1); Sodium 135 mmol/L (136-145)
[2023-02-17] MEDS ORDERED: Furosemide 20 MG TAB PO SCH (09:00)
[2023-02-17] MEDS ORDERED: FLU VACC QS2023(65UP)/MF59C/PF 60 MCG/0.5 ML SYRINGE IM ONE (09:00)
[2023-02-17] MEDS ORDERED: Famotidine 20 MG TAB PO SCH (09:00)
[2023-02-17] MEDS: Ezetimibe 10 MG TAB PO SCH (09:13)
[2023-02-17] MEDS: Multivitamin W/ Minerals 1 TAB PO SCH (09:13)
[2023-02-17] MEDS: Cyanocobalamin (Vitamin B-12) 1,000 MCG TAB PO SCH (09:13)
[2023-02-17] MEDS: Carvedilol 3.125 MG TAB PO SCH ×2 (09:14→18:37)
[2023-02-17] MEDS: Furosemide 20 MG TAB PO SCH (09:14)
[2023-02-17] MEDS: Potassium Chloride 10 MEQ TAB PO SCH (09:14)
[2023-02-17] MEDS: cefTRIAXone\\ROCEPHIN 1 GM in Sodium Chloride 0.9% 100 ML IVPB SCH (15:03)
[2023-02-18] MEDS: Thiamine 100 MG TAB PO SCH (09:58)
[2023-02-18] MEDS: Cyanocobalamin (Vitamin B-12) 1,000 MCG TAB PO SCH (09:58)
[2023-02-18] MEDS: Ezetimibe 10 MG TAB PO SCH (09:58)
[2023-02-18] MEDS: Multivitamin W/ Minerals 1 TAB PO SCH (09:58)
[2023-02-18] MEDS: Potassium Chloride 10 MEQ TAB PO SCH (09:58)
[2023-02-18] MEDS: Folic Acid 1 MG TAB PO SCH (09:58)
[2023-02-18] MEDS: Carvedilol 3.125 MG TAB PO SCH ×2 (10:25→18:15)
[2023-02-18] MEDS: cefTRIAXone\\ROCEPHIN 1 GM in Sodium Chloride 0.9% 100 ML IVPB SCH (16:12)
[2023-02-19 05:26] LABS: Hematocrit 35.2 % (42.0-52.0); Mean Corpuscular HGB CONC 34.1 g/dL (32.0-36.0); Mean Corpuscular Hemoglobin 31.8 pg (27.0-31.0); Mean Corpuscular Volume 93.4 fl (78.0-98.0); Mean Platelet Volume 9.7 fL (7.4-10.4); Platelet Count 164 10x3/uL (130-400); Red Blood Cell (RBC) Count 3.77 mill/uL (4.70-6.10); White Blood Cell (WBC) Count 5.9 10x3/uL (4.8-10.8)
[2023-02-19 05:59] LABS: Anion Gap 10 mmol/L (10-20); BUN (Urea Nitrogen) 8 mg/dL (8.4-25.7); Calc. Creatinine Clearance 176 mL/min (70-130); Calcium 8.4 mg/dL (7.8-10.44); Carbon Dioxide 25 mmol/L (23-31); Chloride 95 mmol/L (98-107); Estimated GFR 114; Glucose 82 mg/dL (83-110); Potassium 4.2 mmol/L (3.5-5.1); Sodium 126 mmol/L (136-145)
[2023-02-19] MEDS: Folic Acid 1 MG TAB PO SCH (08:47)
[2023-02-19] MEDS: Carvedilol 3.125 MG TAB PO SCH ×2 (08:48→16:58)
[2023-02-19] MEDS: Cyanocobalamin (Vitamin B-12) 1,000 MCG TAB PO SCH (08:48)
[2023-02-19] MEDS: Thiamine 100 MG TAB PO SCH (08:48)
[2023-02-19] MEDS: Multivitamin W/ Minerals 1 TAB PO SCH (08:48)
[2023-02-19] MEDS: Potassium Chloride 10 MEQ TAB PO SCH (08:48)
[2023-02-19] MEDS: Ezetimibe 10 MG TAB PO SCH (08:48)
[2023-02-19] MEDS: cefTRIAXone\\ROCEPHIN 1 GM in Sodium Chloride 0.9% 100 ML IVPB SCH (14:12)
[2023-02-19] MEDS: Sodium Chloride 0.9% 1,000 ML IV SCH (14:13)
[2023-02-20] MEDS: Sodium Chloride 0.9% 1,000 ML IV SCH (01:15)
[2023-02-20 07:19] LABS: Anion Gap 11 mmol/L (10-20); BUN (Urea Nitrogen) 7 mg/dL (8.4-25.7); Calc. Creatinine Clearance 176 mL/min (70-130); Calcium 8.4 mg/dL (7.8-10.44); Carbon Dioxide 25 mmol/L (23-31); Chloride 92 mmol/L (98-107); Estimated GFR 114; Glucose 82 mg/dL (83-110); Magnesium 1.7 mg/dL (1.6-2.6); Phosphorus 3.5 mg/dL (2.3-4.7); Sodium 124 mmol/L (136-145)
[2023-02-20] MEDS: Thiamine 100 MG TAB PO SCH (07:50)
[2023-02-20] MEDS: Ezetimibe 10 MG TAB PO SCH (07:50)
[2023-02-20] MEDS: Potassium Chloride 10 MEQ TAB PO SCH (07:50)
[2023-02-20] MEDS: Folic Acid 1 MG TAB PO SCH (07:50)
[2023-02-20] MEDS: Cyanocobalamin (Vitamin B-12) 1,000 MCG TAB PO SCH (07:50)
[2023-02-20] MEDS: Multivitamin W/ Minerals 1 TAB PO SCH (07:51)
[2023-02-20] MEDS: Carvedilol 3.125 MG TAB PO SCH ×2 (07:51→17:02)
[2023-02-20] MEDS: cefTRIAXone\\ROCEPHIN 1 GM in Sodium Chloride 0.9% 100 ML IVPB SCH (14:07)
[2023-02-20] MEDS: Sodium Chloride 1 GM TAB PO SCH ×2 (14:07→20:33)
[2023-02-20] MEDS: Melatonin 3 MG TAB PO PRN (20:33)
[2023-02-21 04:49] LABS: Anion Gap 10 mmol/L (10-20); BUN (Urea Nitrogen) 7 mg/dL (8.4-25.7); Calc. Creatinine Clearance 168 mL/min (70-130); Calcium 8.4 mg/dL (7.8-10.44); Carbon Dioxide 24 mmol/L (23-31); Chloride 91 mmol/L (98-107); Estimated GFR 113; Glucose 80 mg/dL (83-110); Potassium 4.1 mmol/L (3.5-5.1); Sodium 121 mmol/L (136-145)
[2023-02-21] MEDS: Levothyroxine Sodium 25 MCG TAB PO SCH (05:23)
[2023-02-21] MEDS ORDERED: Sodium Chloride 3% 100 ML IVPB SCH (06:15)
[2023-02-21] MEDS: Thiamine 100 MG TAB PO SCH (08:20)
[2023-02-21] MEDS: Sodium Chloride 1 GM TAB PO SCH ×3 (08:20→21:30)
[2023-02-21] MEDS: Cyanocobalamin (Vitamin B-12) 1,000 MCG TAB PO SCH (08:20)
[2023-02-21] MEDS: Ezetimibe 10 MG TAB PO SCH (08:20)
[2023-02-21] MEDS: Multivitamin W/ Minerals 1 TAB PO SCH (08:21)
[2023-02-21] MEDS: Folic Acid 1 MG TAB PO SCH (08:21)
[2023-02-21] MEDS: Furosemide 20 MG TAB PO SCH (08:21)
[2023-02-21] MEDS: Potassium Chloride 10 MEQ TAB PO SCH (08:21)
[2023-02-21] MEDS: Carvedilol 3.125 MG TAB PO SCH ×2 (08:21→16:15)
[2023-02-21 12:03] LABS: Anion Gap 13 mmol/L (10-20); BUN (Urea Nitrogen) 8 mg/dL (8.4-25.7); Calc. Creatinine Clearance 168 mL/min (70-130); Calcium 8.4 mg/dL (7.8-10.44); Carbon Dioxide 22 mmol/L (23-31); Chloride 91 mmol/L (98-107); Estimated GFR 113; Glucose 80 mg/dL (83-110); Potassium 3.9 mmol/L (3.5-5.1); Sodium 122 mmol/L (136-145)
[2023-02-21 17:31] LABS: Anion Gap 14 mmol/L (10-20); BUN (Urea Nitrogen) 9 mg/dL (8.4-25.7); Calc. Creatinine Clearance 164 mL/min (70-130); Calcium 8.5 mg/dL (7.8-10.44); Carbon Dioxide 20 mmol/L (23-31); Chloride 92 mmol/L (98-107); Estimated GFR 112; Glucose 92 mg/dL (83-110); Potassium 4.2 mmol/L (3.5-5.1); Sodium 122 mmol/L (136-145)
[2023-02-21] MEDS: Albumin 25% 25 GM/100 ML BOT IVPB SCH (18:45)
[2023-02-21] MEDS: Sodium Bicarbonate Tab 325 MG TAB PO SCH (21:29)
[2023-02-22 00:03] LABS: Anion Gap 11 mmol/L (10-20); BUN (Urea Nitrogen) 12 mg/dL (8.4-25.7); Calc. Creatinine Clearance 157 mL/min (70-130); Calcium 8.7 mg/dL (7.8-10.44); Carbon Dioxide 26 mmol/L (23-31); Chloride 91 mmol/L (98-107); Estimated GFR 110; Glucose 89 mg/dL (83-110); Potassium 4.3 mmol/L (3.5-5.1); Sodium 124 mmol/L (136-145)
[2023-02-22] MEDS: Albumin 25% 25 GM/100 ML BOT IVPB SCH ×2 (00:30→23:38)
[2023-02-22] MEDS: Levothyroxine Sodium 25 MCG TAB PO SCH (06:01)
[2023-02-22 06:05] LABS: Anion Gap 12 mmol/L (10-20); BUN (Urea Nitrogen) 10 mg/dL (8.4-25.7); Calc. Creatinine Clearance 176 mL/min (70-130); Calcium 8.6 mg/dL (7.8-10.44); Carbon Dioxide 24 mmol/L (23-31); Chloride 92 mmol/L (98-107); Estimated GFR 114; Glucose 82 mg/dL (83-110); Potassium 4.1 mmol/L (3.5-5.1); Sodium 124 mmol/L (136-145)
[2023-02-22] MEDS: Sodium Bicarbonate Tab 325 MG TAB PO SCH ×3 (09:47→20:51)
[2023-02-22] MEDS: Multivitamin W/ Minerals 1 TAB PO SCH (09:47)
[2023-02-22] MEDS: Potassium Chloride 10 MEQ TAB PO SCH (09:47)
[2023-02-22] MEDS: Thiamine 100 MG TAB PO SCH (09:47)
[2023-02-22] MEDS: Sodium Chloride 1 GM TAB PO SCH ×3 (09:48→20:51)
[2023-02-22] MEDS: Cyanocobalamin (Vitamin B-12) 1,000 MCG TAB PO SCH (09:48)
[2023-02-22] MEDS: Ezetimibe 10 MG TAB PO SCH (09:48)
[2023-02-22] MEDS: Folic Acid 1 MG TAB PO SCH (09:48)
[2023-02-22] MEDS: Carvedilol 3.125 MG TAB PO SCH ×2 (09:49→17:11)
[2023-02-22 17:37] LABS: Albumin 3.8 g/dL (3.4-4.8); Anion Gap 11 mmol/L (10-20); BUN (Urea Nitrogen) 9 mg/dL (8.4-25.7); BUN/Creatinine Ratio 20.45; Calc. Creatinine Clearance 160 mL/min (70-130); Calcium 8.8 mg/dL (7.8-10.44); Carbon Dioxide 27 mmol/L (23-31); Chloride 89 mmol/L (98-107); Estimated GFR 111; Glucose 89 mg/dL (83-110); Phosphorus 3.9 mg/dL (2.3-4.7); Potassium 4.4 mmol/L (3.5-5.1); Sodium 123 mmol/L (136-145)
[2023-02-22] MEDS: Melatonin 3 MG TAB PO PRN (20:51)
[2023-02-23] MEDS: Albumin 25% 25 GM/100 ML BOT IVPB SCH ×3 (05:55→18:36)
[2023-02-23] MEDS ORDERED: Ergocalciferol 1.25 MG(50,000 UNITS) CAP PO SCH (09:00)
[2023-02-23] MEDS: Folic Acid 1 MG TAB PO SCH (09:42)
[2023-02-23] MEDS: Sodium Bicarbonate Tab 325 MG TAB PO SCH ×3 (09:42→20:54)
[2023-02-23] MEDS: Potassium Chloride 10 MEQ TAB PO SCH (09:42)
[2023-02-23] MEDS: Sodium Chloride 1 GM TAB PO SCH ×3 (09:43→20:54)
[2023-02-23] MEDS: Cyanocobalamin (Vitamin B-12) 1,000 MCG TAB PO SCH (09:43)
[2023-02-23] MEDS: Ezetimibe 10 MG TAB PO SCH (09:43)
[2023-02-23] MEDS: Carvedilol 3.125 MG TAB PO SCH ×2 (09:43→17:03)
[2023-02-23] MEDS: Thiamine 100 MG TAB PO SCH (09:44)
[2023-02-23] MEDS: Multivitamin W/ Minerals 1 TAB PO SCH (09:44)
[2023-02-23 09:55] LABS: Anion Gap 11 mmol/L (10-20); BUN (Urea Nitrogen) 8 mg/dL (8.4-25.7); Calcium 8.8 mg/dL (7.8-10.44); Carbon Dioxide 25 mmol/L (23-31); Chloride 91 mmol/L (98-107); Glucose 118 mg/dL (83-110); Potassium 3.6 mmol/L (3.5-5.1); Sodium 123 mmol/L (136-145)
[2023-02-23 10:27] LABS: Calc. Creatinine Clearance 172 mL/min (70-130); Estimated GFR 114
[2023-02-23] MEDS: Melatonin 3 MG TAB PO PRN (20:54)
[2023-02-24 06:59] LABS: Anion Gap 11 mmol/L (10-20); BUN (Urea Nitrogen) 10 mg/dL (8.4-25.7); Calc. Creatinine Clearance 176 mL/min (70-130); Calcium 8.9 mg/dL (7.8-10.44); Carbon Dioxide 25 mmol/L (23-31); Chloride 93 mmol/L (98-107); Estimated GFR 114; Glucose 85 mg/dL (83-110); Potassium 4.2 mmol/L (3.5-5.1); Sodium 125 mmol/L (136-145)
[2023-02-24] MEDS: Sodium Bicarbonate Tab 325 MG TAB PO SCH ×3 (09:35→20:04)
[2023-02-24] MEDS: Ezetimibe 10 MG TAB PO SCH (09:35)
[2023-02-24] MEDS: Sodium Chloride 1 GM TAB PO SCH ×3 (09:35→20:04)
[2023-02-24] MEDS: Folic Acid 1 MG TAB PO SCH (09:35)
[2023-02-24] MEDS: Cyanocobalamin (Vitamin B-12) 1,000 MCG TAB PO SCH (09:36)
[2023-02-24] MEDS: Thiamine 100 MG TAB PO SCH (09:36)
[2023-02-24] MEDS: Carvedilol 3.125 MG TAB PO SCH ×2 (09:36→18:02)
[2023-02-24] MEDS: Multivitamin W/ Minerals 1 TAB PO SCH (09:36)
[2023-02-24] MEDS: Potassium Chloride 10 MEQ TAB PO SCH (09:36)
[2023-02-24] MEDS: Melatonin 3 MG TAB PO PRN (20:04)
[2023-02-25 05:17] LABS: Hematocrit 34.1 % (42.0-52.0); Hemoglobin 11.6 g/dL (14.0-18.0); Mean Corpuscular Hemoglobin 31.3 pg (27.0-31.0); Mean Corpuscular Volume 91.9 fl (78.0-98.0); Mean Platelet Volume 9.1 fL (7.4-10.4); Platelet Count 201 10x3/uL (130-400); RBC Distribution Width 14.2 % (11.5-14.5); Red Blood Cell (RBC) Count 3.71 mill/uL (4.70-6.10)
[2023-02-25 05:48] LABS: Anion Gap 12 mmol/L (10-20); BUN (Urea Nitrogen) 14 mg/dL (8.4-25.7); Calc. Creatinine Clearance 168 mL/min (70-130); Calcium 8.9 mg/dL (7.8-10.44); Carbon Dioxide 25 mmol/L (23-31); Chloride 94 mmol/L (98-107); Estimated GFR 113; Glucose 86 mg/dL (83-110); Potassium 4.2 mmol/L (3.5-5.1); Sodium 127 mmol/L (136-145)
[2023-02-25] MEDS: Carvedilol 3.125 MG TAB PO SCH ×2 (09:01→16:55)
[2023-02-25] MEDS: Ezetimibe 10 MG TAB PO SCH (09:02)
[2023-02-25] MEDS: Multivitamin W/ Minerals 1 TAB PO SCH (09:02)
[2023-02-25] MEDS: Cyanocobalamin (Vitamin B-12) 1,000 MCG TAB PO SCH (09:02)
[2023-02-25] MEDS: Sodium Chloride 1 GM TAB PO SCH ×3 (09:02→20:18)
[2023-02-25] MEDS: Sodium Bicarbonate Tab 325 MG TAB PO SCH ×3 (09:02→20:18)
[2023-02-25] MEDS: Folic Acid 1 MG TAB PO SCH (09:02)
[2023-02-25] MEDS: Potassium Chloride 10 MEQ TAB PO SCH (09:02)
[2023-02-25] MEDS: Thiamine 100 MG TAB PO SCH (09:03)
[2023-02-25] MEDS: Melatonin 3 MG TAB PO PRN ×2 (20:18→22:42)
[2023-02-26 05:35] LABS: ALT (SGPT) 213 U/L (8-55); AST (SGOT) 229 U/L (5-34); Albumin 3.9 g/dL (3.4-4.8); Alkaline Phosphatase 80 U/L (40-110); Anion Gap 11 mmol/L (10-20); BUN (Urea Nitrogen) 17 mg/dL (8.4-25.7); Bilirubin, Total 0.3 mg/dL (0.2-1.2); Calc. Creatinine Clearance 157 mL/min (70-130); Carbon Dioxide 24 mmol/L (23-31); Chloride 97 mmol/L (98-107); Estimated GFR 110; Globulin 2.4 g/dL (2.4-3.5); Glucose 84 mg/dL (83-110); Potassium 4.2 mmol/L (3.5-5.1); Protein, Total 6.3 g/dL (5.8-8.1); Sodium 128 mmol/L (136-145)
[2023-02-26] MEDS: Sodium Bicarbonate Tab 325 MG TAB PO SCH ×3 (08:23→19:30)
[2023-02-26] MEDS: Ezetimibe 10 MG TAB PO SCH (08:24)
[2023-02-26] MEDS: Carvedilol 3.125 MG TAB PO SCH ×2 (08:24→16:24)
[2023-02-26] MEDS: Potassium Chloride 10 MEQ TAB PO SCH (08:24)
[2023-02-26] MEDS: Cyanocobalamin (Vitamin B-12) 1,000 MCG TAB PO SCH (08:24)
[2023-02-26] MEDS: Thiamine 100 MG TAB PO SCH (08:24)
[2023-02-26] MEDS: Multivitamin W/ Minerals 1 TAB PO SCH (08:24)
[2023-02-26] MEDS: Folic Acid 1 MG TAB PO SCH (08:24)
[2023-02-26] MEDS: Sodium Chloride 1 GM TAB PO SCH ×3 (08:24→19:30)
[2023-02-26] MEDS: Melatonin 3 MG TAB PO PRN (21:31)
[2023-02-27] MEDS: Ezetimibe 10 MG TAB PO SCH (08:52)
[2023-02-27] MEDS: Folic Acid 1 MG TAB PO SCH (08:52)
[2023-02-27] MEDS: Cyanocobalamin (Vitamin B-12) 1,000 MCG TAB PO SCH (08:52)
[2023-02-27] MEDS: Multivitamin W/ Minerals 1 TAB PO SCH (08:52)
[2023-02-27] MEDS: Sodium Chloride 1 GM TAB PO SCH ×3 (08:52→21:06)
[2023-02-27] MEDS: Sodium Bicarbonate Tab 325 MG TAB PO SCH ×3 (08:52→21:05)
[2023-02-27] MEDS: Carvedilol 3.125 MG TAB PO SCH ×2 (08:53→18:23)
[2023-02-27] MEDS: Potassium Chloride 10 MEQ TAB PO SCH (08:53)
[2023-02-27] MEDS: Thiamine 100 MG TAB PO SCH (08:53)
[2023-02-27 09:45] LABS: Anion Gap 14 mmol/L (10-20); BUN (Urea Nitrogen) 12 mg/dL (8.4-25.7); Calc. Creatinine Clearance 164 mL/min (70-130); Calcium 9.1 mg/dL (7.8-10.44); Carbon Dioxide 21 mmol/L (23-31); Chloride 97 mmol/L (98-107); Estimated GFR 112; Glucose 82 mg/dL (83-110); Potassium 5.5 mmol/L (3.5-5.1); Sodium 126 mmol/L (136-145)
[2023-02-27] MEDS ORDERED: LOKELMA 10 GM PACKET PO SCH (14:30)
[2023-02-27] MEDS: Melatonin 3 MG TAB PO PRN (21:06)
[2023-02-28 06:20] LABS: Anion Gap 12 mmol/L (10-20); BUN (Urea Nitrogen) 15 mg/dL (8.4-25.7); Calc. Creatinine Clearance 172 mL/min (70-130); Carbon Dioxide 27 mmol/L (23-31); Chloride 96 mmol/L (98-107); Estimated GFR 114; Glucose 79 mg/dL (83-110); Potassium 4.1 mmol/L (3.5-5.1); Sodium 131 mmol/L (136-145)
[2023-02-28] MEDS: Carvedilol 3.125 MG TAB PO SCH (09:06)
[2023-02-28] MEDS: Sodium Bicarbonate Tab 325 MG TAB PO SCH (09:08)
[2023-02-28] MEDS: Multivitamin W/ Minerals 1 TAB PO SCH (09:09)
[2023-02-28] MEDS: Ezetimibe 10 MG TAB PO SCH (09:09)
[2023-02-28] MEDS: Thiamine 100 MG TAB PO SCH (09:09)
[2023-02-28] MEDS: Cyanocobalamin (Vitamin B-12) 1,000 MCG TAB PO SCH (09:09)
[2023-02-28] MEDS: Sodium Chloride 1 GM TAB PO SCH (09:09)
[2023-02-28] MEDS: Folic Acid 1 MG TAB PO SCH (09:09)
[2023-02-28] MEDS ORDERED: methylPREDNISolone Acetate 40 mg/ml Vial IM SCH (10:15)
[2023-02-28] MEDS ORDERED: Bupivacaine HCl 0.5%/Epinephrine 1:200,000/PF 30 ml Vial IJ SCH (10:15)
[2023-02-28] MEDS ORDERED: Lidocaine 1% (PF) 30 ML VIAL SC SCH (10:15)
[2023-02-28 11:49] VITALS: BP 97/64; TEMP 97.6
== END 2023-02-28 13:52 | DRG 690 ==
LOC: ERS 15:20 → SURG A 19:50 → OBSVTOIN 02-17 15:39
PROVIDERS: ADMIT Student in an Organized Health Care Education/Training Program; ATTEND Internal Medicine
PROC: 30233J1 Transfusion of Nonautologous Serum Albumin into Peripheral Vein, Percutaneous Approach (ICD-10-PCS; principal; 2023-02-21)
DX: N30.00 Acute cystitis without hematuria (principal); E22.2 Syndrome of inappropriate secretion of antidiuretic hormone; E44.1 Mild protein-calorie malnutrition; G93.40 Encephalopathy, unspecified; I50.22 Chronic systolic (congestive) heart failure; I25.810 Atherosclerosis of coronary artery bypass graft(s) without angina pectoris; E78.5 Hyperlipidemia, unspecified; Z96.649 Presence of unspecified artificial hip joint; R62.7 Adult failure to thrive; R13.12 Dysphagia, oropharyngeal phase; E03.9 Hypothyroidism, unspecified; F10.10 Alcohol abuse, uncomplicated; E83.51 Hypocalcemia; M62.50 Muscle wasting and atrophy, not elsewhere classified, unspecified site; Z79.82 Long term (current) use of aspirin; Z79.899 Other long term (current) drug therapy; Z86.73 Personal history of transient ischemic attack (TIA), and cerebral infarction without residual deficits; Z87.891 Personal history of nicotine dependence; Z68.24 Body mass index [BMI] 24.0-24.9, adult; Z95.1 Presence of aortocoronary bypass graft
CPT/HCPCS: 36415; 71045; 72141; 72148; 74230; 80048; 80053; 81001; 82040; 82306; 82533; 83735; 83880; 83930; 83935; 84100; 84300; 84439; 84443; 84484; 84550; 85025; 85027; 87040; 87077; 87086; 87186; 93005; 93306; 96365; 96366; 96376; G0378; J0696; J3490; J7050; J7131; P9047

== ENCOUNTER 2024-02-07 10:17 | Day surgery (SDC) | payer OTHER ==
[2024-02-07 10:27] VITALS: BP 116/67; TEMP 97.6
[2024-02-07] MEDS ORDERED: LevoFLOXacin 500 mg/D5W 500 MG in Premix 1 BAG IVPB SCH (10:30)
[2024-02-07] MEDS ORDERED: Lidocaine 2% 6 ML (Jelly) SYR ONE (11:53)
== END 2024-02-07 13:15 | disposition home or self-care (01) ==
LOC: CT 10:17
PROVIDERS: ATTEND Urology
PROC: 0T9B3ZZ Drainage of Bladder, Percutaneous Approach (ICD-10-PCS; principal; 2024-02-07)
DX: N13.8 Other obstructive and reflux uropathy (principal); R33.9 Retention of urine, unspecified; N40.1 Benign prostatic hyperplasia with lower urinary tract symptoms; G62.9 Polyneuropathy, unspecified; F10.99 Alcohol use, unspecified with unspecified alcohol-induced disorder; I25.10 Atherosclerotic heart disease of native coronary artery without angina pectoris; E78.5 Hyperlipidemia, unspecified; E03.9 Hypothyroidism, unspecified; I10 Essential (primary) hypertension; M35.3 Polymyalgia rheumatica; R68.89 Other general symptoms and signs; Z79.82 Long term (current) use of aspirin; Z79.890 Hormone replacement therapy; Z98.890 Other specified postprocedural states; Z79.899 Other long term (current) drug therapy; Z90.49 Acquired absence of other specified parts of digestive tract; Z90.89 Acquired absence of other organs; Z87.891 Personal history of nicotine dependence
CPT/HCPCS: 51102; 77012; C2627; J1956; J3010; J2250

== ENCOUNTER 2024-02-15 11:53 | Inpatient (IN) | payer OTHER ==
[2024-02-15 14:17] LABS: #Basophils Less than 0.03 10x3/uL (0.0-0.2); %Basophils 0.3 % (0.0-1.0); %Eosinophils 7.4 % (0.0-10.0); %Lymphocytes 27.7 % (21.0-51.0); %Monocytes 17.6 % (0.0-10.0); Hematocrit 39.4 % (42.0-52.0); Hemoglobin 12.3 g/dL (14.0-18.0); Mean Corpuscular HGB CONC 31.2 g/dL (32.0-36.0); Mean Corpuscular Hemoglobin 26.3 pg (27.0-31.0); Mean Corpuscular Volume 84.2 fL (78.0-98.0); Mean Platelet Volume 9.5 fL (7.4-10.4); Platelet Count 351 10x3/uL (130-400); RBC Distribution Width 18.5 % (11.5-14.5); Red Blood Cell (RBC) Count 4.68 mill/uL (4.70-6.10)
[2024-02-15 14:38] LABS: ALT (SGPT) 9 U/L (8-55); AST (SGOT) 26 U/L (5-34); Albumin 2.8 g/dL (3.4-4.8); Alkaline Phosphatase 89 U/L (40-110); Anion Gap 13 mmol/L (10-20); BUN (Urea Nitrogen) 14 mg/dL (8.4-25.7); Bilirubin, Total 0.7 mg/dL (0.2-1.2); Calc. Creatinine Clearance 0 mL/min (70-130); Calcium 9.4 mg/dL (7.8-10.44); Carbon Dioxide 23 mmol/L (23-31); Chloride 100 mmol/L (98-107); Estimated GFR 98; Globulin 5.1 g/dL (2.4-3.5); Glucose 95 mg/dL (83-110); Lipase 46 U/L (8-78); Potassium 3.5 mmol/L (3.5-5.1); Protein, Total 7.9 g/dL (5.8-8.1); Sodium 132 mmol/L (136-145)
[2024-02-15 14:44] LABS: Troponin I 0.026 ng/mL (< 0.028)
[2024-02-15] MEDS ORDERED: Sulfameth/Trimethoprim DS 800-160mg TAB ONE (16:23)
[2024-02-15 17:01] LABS: Lactic Acid 1.68 mmol/L (0.5-2.2)
[2024-02-15] MEDS ORDERED: Acetaminophen 650 MG Suppository PR PRN (17:26)
[2024-02-15] MEDS ORDERED: Guaifenesin DM 100-10/5 ML UDCUP PO PRN (17:26)
[2024-02-15] MEDS ORDERED: Ondansetron ODT 4 MG TAB PO PRN (17:26)
[2024-02-15] MEDS ORDERED: Acetaminophen/Codeine 30-300mg Tablet PO PRN (17:26)
[2024-02-15 18:49] LABS: Bacteria/HPF 4+ HPF (None Seen); Bilirubin Negative (Negative); Blood, Urine 2+ (Negative); CAUTI Indications for Culture Dysuria,urgency,freq; Calcium Oxalate Crystals Rare HPF (None Seen); Clarity Turbid (Clear); Glucose, Urine (Dipstick) Normal (Negative); Ketone, Urine Trace mg/dL (Negative); Leukocyte 500 Leu/uL (Negative); Nitrite 2+ (Negative); Protein, Urine (Dipstick) 50 mg/dL (Neg-Trace); Specific Gravity, Urine 1.019 (1.002-1.036); Squamous Epithelial None Seen HPF (0-3); WBC/HPF Greater than 50 HPF (0-3)
[2024-02-15 19:12] LABS: Urine Culture Reflex Yes Yes
[2024-02-15] MEDS: Sodium Chloride 0.9% 1,000 ML IV SCH (21:12)
[2024-02-15] MEDS: Mycophenolate 250 MG CAP PO SCH (22:07)
[2024-02-16 00:19] VITALS: BMI 24.4
[2024-02-16] MEDS: Levothyroxine Sodium 50 MCG TAB PO SCH (06:00)
[2024-02-16 06:34] LABS: #Basophils Less than 0.03 10x3/uL (0.0-0.2); %Basophils 0.4 % (0.0-1.0); %Eosinophils 10.8 % (0.0-10.0); %Lymphocytes 28.8 % (21.0-51.0); %Monocytes 17.3 % (0.0-10.0); %Neutrophils 42.3 % (42.0-75.0); Hematocrit 35.2 % (42.0-52.0); Hemoglobin 10.9 g/dL (14.0-18.0); Mean Corpuscular Hemoglobin 26.1 pg (27.0-31.0); Mean Corpuscular Volume 84.4 fL (78.0-98.0); Mean Platelet Volume 9.1 fL (7.4-10.4); Platelet Count 298 10x3/uL (130-400); RBC Distribution Width 18.3 % (11.5-14.5); Red Blood Cell (RBC) Count 4.17 mill/uL (4.70-6.10)
[2024-02-16 06:59] LABS: ALT (SGPT) 7 U/L (8-55); AST (SGOT) 21 U/L (5-34); Albumin 2.4 g/dL (3.4-4.8); Alkaline Phosphatase 76 U/L (40-110); Anion Gap 10 mmol/L (10-20); BUN (Urea Nitrogen) 8 mg/dL (8.4-25.7); Bilirubin, Total 0.5 mg/dL (0.2-1.2); Calc. Creatinine Clearance 130 mL/min (70-130); Calcium 8.5 mg/dL (7.8-10.44); Carbon Dioxide 23 mmol/L (23-31); Chloride 104 mmol/L (98-107); Estimated GFR 103; Globulin 4.4 g/dL (2.4-3.5); Glucose 91 mg/dL (83-110); Potassium 3.3 mmol/L (3.5-5.1); Protein, Total 6.8 g/dL (5.8-8.1); Sodium 134 mmol/L (136-145)
[2024-02-16 08:27] LABS: Bacteria/HPF 3+ HPF (None Seen); Bilirubin Negative (Negative); Blood, Urine 2+ (Negative); CAUTI Indications for Culture Alt mental st,lethar; Calcium Oxalate Crystals Rare HPF (None Seen); Clarity Turbid (Clear); Glucose, Urine (Dipstick) Normal (Negative); Ketone, Urine Negative (Negative); Leukocyte 500 Leu/uL (Negative); Nitrite 2+ (Negative); Protein, Urine (Dipstick) 30 mg/dL (Neg-Trace); RBC/HPF 21-50 HPF (0-3); Specific Gravity, Urine 1.011 (1.002-1.036); Squamous Epithelial None Seen HPF (0-3); Urobilinogen Normal mg/dL (Less than 2); WBC/HPF Greater than 50 HPF (0-3)
[2024-02-16] MEDS: Cyanocobalamin (Vitamin B-12) 1,000 MCG TAB PO SCH (08:39)
[2024-02-16] MEDS: Sulfameth/Trimethoprim DS 800-160mg TAB PO SCH (08:39)
[2024-02-16] MEDS: Aspirin 81 mg Enteric Coated Tablet PO SCH (08:39)
[2024-02-16] MEDS: Pantoprazole DR 40 MG TAB PO SCH (08:39)
[2024-02-16] MEDS: Potassium Chloride 20 MEQ TAB PO SCH (11:25)
[2024-02-16] MEDS ORDERED: Meropenem 1 GM in Sodium Chloride 0.9% 100 ML IVPB SCH ×2 (14:00→22:00)
[2024-02-16] MEDS: Vancomycin (BATCH) 2 GM in Premix 1 BAG IVPB SCH (14:46)
[2024-02-16] MEDS ORDERED: Vancomycin 1 GM in Premix 1 BAG IVPB SCH (21:00)
[2024-02-16] MEDS: Vancomycin (BATCH) 1.5 GM in Premix 1 BAG IVPB SCH (23:48)
[2024-02-17 06:08] LABS: Vancomycin, Random 21.9 ug/mL (See Comment)
[2024-02-17] MEDS: Vancomycin (BATCH) 1.75 GM in Premix 1 BAG IVPB SCH (11:56)
[2024-02-18 08:56] LABS: Anion Gap 13 mmol/L (10-20); BUN (Urea Nitrogen) 4 mg/dL (8.4-25.7); Calc. Creatinine Clearance 128 mL/min (70-130); Carbon Dioxide 21 mmol/L (23-31); Chloride 103 mmol/L (98-107); Estimated GFR 103; Glucose 84 mg/dL (83-110); Potassium 3.8 mmol/L (3.5-5.1); Sodium 133 mmol/L (136-145)
[2024-02-21] MEDS: Acetaminophen 325 MG TAB PO PRN (21:58)
[2024-02-22] MEDS: Ergocalciferol 1.25 MG(50,000 UNITS) CAP PO SCH (08:09)
[2024-02-22 15:13] VITALS: BMI 24.4
[2024-02-23 07:55] LABS: #Basophils Less than 0.03 10x3/uL (0.0-0.2); %Basophils 0.6 % (0.0-1.0); %Eosinophils 13.9 % (0.0-10.0); %Lymphocytes 29.3 % (21.0-51.0); %Monocytes 13.9 % (0.0-10.0); Hematocrit 36.4 % (42.0-52.0); Hemoglobin 11.4 g/dL (14.0-18.0); Mean Corpuscular HGB CONC 31.3 g/dL (32.0-36.0); Mean Corpuscular Hemoglobin 26.8 pg (27.0-31.0); Mean Corpuscular Volume 85.4 fL (78.0-98.0); Mean Platelet Volume 9.8 fL (7.4-10.4); Platelet Count 355 10x3/uL (130-400); RBC Distribution Width 18.6 % (11.5-14.5); Red Blood Cell (RBC) Count 4.26 mill/uL (4.70-6.10)
[2024-02-23 08:11] LABS: Anion Gap 11 mmol/L (10-20); BUN (Urea Nitrogen) 7 mg/dL (8.4-25.7); Calc. Creatinine Clearance 116 mL/min (70-130); Calcium 8.8 mg/dL (7.8-10.44); Carbon Dioxide 22 mmol/L (23-31); Chloride 107 mmol/L (98-107); Estimated GFR 100; Glucose 81 mg/dL (83-110); Potassium 3.7 mmol/L (3.5-5.1); Sodium 136 mmol/L (136-145)
[2024-02-25] MEDS: Carvedilol 3.125 MG TAB PO SCH (20:22)
[2024-02-25 20:46] LABS: Amphetamine Not Detected (NotDetected); Barbiturates Screen Not Detected (NotDetected); Benzodiazepine Screen Not Detected (NotDetected); Cocaine Metabolite Screen Not Detected (NotDetected); Methadone Not Detected (NotDetected); Methamphetamine Not Detected (NotDetected); Opiate Screen Not Detected (NotDetected); Oxycodone Screen Not Detected (NotDetected); Phencyclidine (PCP) Not Detected (NotDetected); THC/Cannabinoid Screen Not Detected (NotDetected); Tricyclic Screen Not Detected (NotDetected)
[2024-02-26 06:04] LABS: #Basophils Less than 0.03 10x3/uL (0.0-0.2); %Basophils 0.6 % (0.0-1.0); %Eosinophils 14.6 % (0.0-10.0); %Lymphocytes 27.3 % (21.0-51.0); %Monocytes 12.1 % (0.0-10.0); %Neutrophils 45.4 % (42.0-75.0); Hematocrit 37.6 % (42.0-52.0); Hemoglobin 11.9 g/dL (14.0-18.0); Mean Corpuscular HGB CONC 31.6 g/dL (32.0-36.0); Mean Corpuscular Hemoglobin 26.5 pg (27.0-31.0); Mean Corpuscular Volume 83.7 fL (78.0-98.0); Mean Platelet Volume 9.7 fL (7.4-10.4); Platelet Count 340 10x3/uL (130-400); RBC Distribution Width 18.5 % (11.5-14.5); Red Blood Cell (RBC) Count 4.49 mill/uL (4.70-6.10)
[2024-02-26 06:21] LABS: Anion Gap 15 mmol/L (10-20); BUN (Urea Nitrogen) 7 mg/dL (8.4-25.7); Calc. Creatinine Clearance 124 mL/min (70-130); Calcium 9.1 mg/dL (7.8-10.44); Carbon Dioxide 22 mmol/L (23-31); Chloride 106 mmol/L (98-107); Estimated GFR 102; Glucose 75 mg/dL (83-110); Magnesium 1.7 mg/dL (1.6-2.6); Potassium 3.5 mmol/L (3.5-5.1); Sodium 139 mmol/L (136-145)
[2024-02-26] MEDS: Escitalopram Oxalate 10 mg Tablet PO SCH (08:09)
[2024-02-26] MEDS: Furosemide 20 MG TAB PO SCH (08:09)
[2024-02-26] MEDS: Tamsulosin HCl 0.4 MG CAP PO SCH (08:10)
[2024-02-26] MEDS ORDERED: EZETIMIBE PO SCH (09:00)
[2024-02-26] MEDS ORDERED: BEMPEDOIC ACID PO SCH (09:00)
[2024-02-26 14:58] LABS: Influenza A by NAA Not Detected (NotDetected); Influenza B by NAA Not Detected (NotDetected); RSV by NAA Not Detected (NotDetected); SARS-CoV-2 NAA Rapid Test Not Detected (NotDetected)
[2024-02-27] MEDS: Loperamide HCl 2 MG CAP PO PRN (01:02)
[2024-02-27 05:39] LABS: #Basophils Less than 0.03 10x3/uL (0.0-0.2); %Basophils 0.6 % (0.0-1.0); %Eosinophils 15.9 % (0.0-10.0); %Lymphocytes 23.3 % (21.0-51.0); %Monocytes 11.8 % (0.0-10.0); %Neutrophils 48.1 % (42.0-75.0); Hematocrit 37.6 % (42.0-52.0); Hemoglobin 11.5 g/dL (14.0-18.0); Mean Corpuscular HGB CONC 30.6 g/dL (32.0-36.0); Mean Corpuscular Hemoglobin 26.9 pg (27.0-31.0); Mean Corpuscular Volume 88.1 fL (78.0-98.0); Mean Platelet Volume 8.9 fL (7.4-10.4); Platelet Count 294 10x3/uL (130-400); RBC Distribution Width 18.5 % (11.5-14.5); Red Blood Cell (RBC) Count 4.27 mill/uL (4.70-6.10)
[2024-02-27 06:06] LABS: Anion Gap 15 mmol/L (10-20); BUN (Urea Nitrogen) 8 mg/dL (8.4-25.7); Calc. Creatinine Clearance 119 mL/min (70-130); Calcium 8.9 mg/dL (7.8-10.44); Carbon Dioxide 20 mmol/L (23-31); Chloride 106 mmol/L (98-107); Estimated GFR 101; Glucose 73 mg/dL (83-110); Magnesium 1.6 mg/dL (1.6-2.6); Potassium 3.7 mmol/L (3.5-5.1); Sodium 137 mmol/L (136-145)
[2024-02-27] MEDS: Magnesium Oxide 400 MG TAB PO SCH (09:19)
[2024-02-27] MEDS ORDERED: Vancomycin (BATCH) 1.5 GM in Premix 1 BAG IVPB SCH (15:00)
[2024-02-27] MEDS: Piperacillin/Tazobactam 3.375 GM in Sodium Chloride 0.9% 100 ML IVPB SCH (15:29)
[2024-02-27 17:10] LABS: Bilirubin Negative (Negative); Blood, Urine Negative (Negative); Clarity Turbid (Clear); Glucose, Urine (Dipstick) Normal (Negative); Ketone, Urine 10 mg/dL (Negative); Leukocyte 500 Leu/uL (Negative); Nitrite Negative (Negative); Protein, Urine (Dipstick) 20 mg/dL (Neg-Trace); RBC/HPF 0-3 HPF (0-3); Specific Gravity, Urine 1.017 (1.002-1.036); Squamous Epithelial None Seen HPF (0-3); Urobilinogen Normal mg/dL (Less than 2); WBC/HPF Greater than 50 HPF (0-3); pH, Urine 5.5 (5.0-9.0)
[2024-02-27 17:12] LABS: Bacteria/HPF 1+ HPF (None Seen)
[2024-02-27] MEDS: Vancomycin (BATCH) 2 GM in Premix 1 BAG IVPB SCH (17:46)
[2024-02-27] MEDS ORDERED: Piperacillin/Tazobactam 3.375 GM in Sodium Chloride 0.9% 100 ML IVPB SCH (18:00)
[2024-02-27] MEDS ORDERED: Vancomycin 1 GM in Sodium Chloride 0.9% 250 ML 250 ML IVPB SCH (21:00)
[2024-02-27] MEDS: Meropenem 1 GM in Sodium Chloride 0.9% 100 ML IVPB SCH (21:03)
[2024-02-27] MEDS ORDERED: Meropenem 1 GM in Sodium Chloride 0.9% 100 ML IVPB SCH (22:00)
[2024-02-27] MEDS: Vancomycin (BATCH) 1.25 GM in Premix 1 BAG IVPB SCH (23:34)
[2024-02-28 05:05] LABS: #Basophils Less than 0.03 10x3/uL (0.0-0.2); %Basophils 0.3 % (0.0-1.0); %Eosinophils 15.2 % (0.0-10.0); %Lymphocytes 23.6 % (21.0-51.0); %Monocytes 14.2 % (0.0-10.0); %Neutrophils 46.4 % (42.0-75.0); Hematocrit 36.3 % (42.0-52.0); Hemoglobin 11.1 g/dL (14.0-18.0); Mean Corpuscular HGB CONC 30.6 g/dL (32.0-36.0); Mean Corpuscular Hemoglobin 26.1 pg (27.0-31.0); Mean Corpuscular Volume 85.2 fL (78.0-98.0); Mean Platelet Volume 9.6 fL (7.4-10.4); Platelet Count 297 10x3/uL (130-400); RBC Distribution Width 18.3 % (11.5-14.5); Red Blood Cell (RBC) Count 4.26 mill/uL (4.70-6.10)
[2024-02-28 05:10] LABS: Vancomycin, Random 26.3 ug/mL (See Comment)
[2024-02-28 05:11] LABS: Anion Gap 12 mmol/L (10-20); BUN (Urea Nitrogen) 5 mg/dL (8.4-25.7); Calc. Creatinine Clearance 130 mL/min (70-130); Calcium 8.5 mg/dL (7.8-10.44); Carbon Dioxide 23 mmol/L (23-31); Chloride 106 mmol/L (98-107); Estimated GFR 103; Glucose 90 mg/dL (83-110); Magnesium 1.6 mg/dL (1.6-2.6); Potassium 3.6 mmol/L (3.5-5.1); Sodium 137 mmol/L (136-145)
[2024-02-28] MEDS: Meropenem 1 GM in Sodium Chloride 0.9% 100 ML IVPB SCH (05:36)
[2024-02-28] MEDS: Enoxaparin 40 MG (0.4 mL) SYRINGE SC SCH (08:27)
[2024-02-29 07:20] LABS: #Basophils Less than 0.03 10x3/uL (0.0-0.2); %Basophils 0.6 % (0.0-1.0); %Monocytes 12.9 % (0.0-10.0); %Neutrophils 47.2 % (42.0-75.0); Hematocrit 34.9 % (42.0-52.0); Hemoglobin 10.9 g/dL (14.0-18.0); Mean Corpuscular HGB CONC 31.2 g/dL (32.0-36.0); Mean Corpuscular Hemoglobin 26.5 pg (27.0-31.0); Mean Corpuscular Volume 84.7 fL (78.0-98.0); Mean Platelet Volume 9.4 fL (7.4-10.4); Platelet Count 263 10x3/uL (130-400); RBC Distribution Width 18.2 % (11.5-14.5); Red Blood Cell (RBC) Count 4.12 mill/uL (4.70-6.10)
[2024-02-29 07:45] LABS: Anion Gap 11 mmol/L (10-20); BUN (Urea Nitrogen) 6 mg/dL (8.4-25.7); Calc. Creatinine Clearance 143 mL/min (70-130); Calcium 8.3 mg/dL (7.8-10.44); Carbon Dioxide 25 mmol/L (23-31); Chloride 103 mmol/L (98-107); Estimated GFR 106; Glucose 84 mg/dL (83-110); Magnesium 1.6 mg/dL (1.6-2.6); Potassium 3.1 mmol/L (3.5-5.1); Sodium 136 mmol/L (136-145)
[2024-02-29] MEDS: Ondansetron PF 4 MG/2 ML Vial IVP PRN (14:44)
[2024-03-01 04:59] LABS: #Basophils Less than 0.03 10x3/uL (0.0-0.2); %Basophils 0.7 % (0.0-1.0); %Eosinophils 15.7 % (0.0-10.0); %Monocytes 14.6 % (0.0-10.0); Hematocrit 36.2 % (42.0-52.0); Hemoglobin 11.3 g/dL (14.0-18.0); Mean Corpuscular HGB CONC 31.2 g/dL (32.0-36.0); Mean Corpuscular Hemoglobin 26.5 pg (27.0-31.0); Mean Platelet Volume 9.8 fL (7.4-10.4); Platelet Count 253 10x3/uL (130-400); RBC Distribution Width 18.3 % (11.5-14.5); Red Blood Cell (RBC) Count 4.26 mill/uL (4.70-6.10)
[2024-03-01 05:17] LABS: Anion Gap 12 mmol/L (10-20); BUN (Urea Nitrogen) 8 mg/dL (8.4-25.7); Calc. Creatinine Clearance 126 mL/min (70-130); Calcium 8.6 mg/dL (7.8-10.44); Carbon Dioxide 24 mmol/L (23-31); Chloride 101 mmol/L (98-107); Estimated GFR 102; Glucose 91 mg/dL (83-110); Magnesium 1.7 mg/dL (1.6-2.6); Potassium 3.3 mmol/L (3.5-5.1); Sodium 134 mmol/L (136-145)
[2024-03-01] MEDS: Sulfameth/Trimethoprim DS 800-160mg TAB PO SCH (14:20)
[2024-03-01 15:44] VITALS: BP 91/60; TEMP 97.6
[2024-03-01] MEDS ORDERED: Sulfameth/Trimethoprim DS 800-160mg TAB PO SCH (21:00)
== END 2024-03-01 15:23 | disposition home health service (06) | DRG 698 ==
LOC: ERS 11:53 → T4-B 16:14 → ERHOLD 16:53 → T4-B 22:46
PROVIDERS: ADMIT Internal Medicine; ATTEND Internal Medicine
PROC: 4A00X4Z Measurement of Central Nervous Electrical Activity, External Approach (ICD-10-PCS; principal; 2024-02-28)
DX: T83.511A Infection and inflammatory reaction due to indwelling urethral catheter, initial encounter (principal); G93.41 Metabolic encephalopathy; E87.1 Hypo-osmolality and hyponatremia; D84.821 Immunodeficiency due to drugs; F23 Brief psychotic disorder; N31.9 Neuromuscular dysfunction of bladder, unspecified; I25.10 Atherosclerotic heart disease of native coronary artery without angina pectoris; E78.5 Hyperlipidemia, unspecified; Z95.1 Presence of aortocoronary bypass graft; G70.00 Myasthenia gravis without (acute) exacerbation; E03.9 Hypothyroidism, unspecified; D64.9 Anemia, unspecified; E87.6 Hypokalemia; I50.9 Heart failure, unspecified; I11.0 Hypertensive heart disease with heart failure; Z79.899 Other long term (current) drug therapy
CPT/HCPCS: 0241U; 36415; 36416; 70450; 70551; 71045; 80048; 80053; 80202; 80306; 81001; 83605; 83690; 83735; 83880; 84145; 84443; 84484; 85025; 86141; 87040; 87070; 87077; 87086; 87149; 87186; 87205; 93005; 95700; 95711; 95957; J1650; J2185; J2405; J2543; J3370; J7030; J7517